=== PATIENT | female | born 1945 | race Caucasian/White ===

== ENCOUNTER 2018-11-04 11:50 | Outpatient (REF) | payer MEDICARE, BC, SELFPAY ==
--- NOTE | 2018-11-04 10:55 | ENDOMET_PTH ---
PATIENT: Keiko Duque LOC: [facility] U#:[id number] AGE/SX: 73/F ROOM: RE11/04/[address]: Shea Schwartz : 1945 BED: DIS: 11/04/2018 SPEC #: [id number] RECD: 11/04/18 12:20 STATUS: LORIN REQ #: [id number] JA: 11/04/18 10:[address]: Shea Schwartz DEPT: Surgical Specimen RECD BY: Batsheva Chicas ENTERED: 11/04/18 12:21 SP TYPE: Endomet OTHR DR: Jovanna Hawkins MD, DC Tissues: 1 - ENDOMETRIUM BX/CURRETTE Procedures: GROSS AND MICRO LEVEL 4 Comments: [id number]
== END 2018-11-04 12:10 ==
LOC: LBN 11:50
PROVIDERS: PCP Family Medicine; Visit Provider Obstetrics & Gynecology Gynecology
DX: N84.0 Polyp of corpus uteri (principal); N95.0 Postmenopausal bleeding
CPT/HCPCS: 88305

== ENCOUNTER 2018-11-06 12:42 | Outpatient (CLI) | payer MEDICARE, BC, SELFPAY ==
--- NOTE | 2018-11-06 12:47 | DI.US_ITS ---
SYMPTOMS/DIAGNOSIS: POSTMENOPAUSAL BLEEDING, N95 PELVIC ULTRASOUND: There are no prior comparison exams. There is a moderate to large quantity of ascites which appears higher density than simple fluid and could represent proteinaceous or hemorrhagic material. The uterus measures 7.5 x 3.4. x 3.6 cm. There is fluid within the endometrium and a small amount of debris within the endometrium. No endometrial mass is seen. There are two small anterior fibroids. There is a 5.3 x 2.5 x 3.4 cm complex right adnexal mass. There is a cystic portion containing septations as well as a 3.2 cm solid irregular component with vascularity. An additional mass measuring 4.7 x 1.9 x 3.2 cm is seen in the midline and slightly toward the left which could arise from the left ovary. IMPRESSION: Right adnexal mass with solid and cystic components suspicious for ovarian carcinoma. There is a moderate to large quantity of complex fluid in the pelvis. An additional cystic mass is seen which may arise from the left ovary. Fluid is noted within the endometrial stripe. There is no definite endometrial mass. CT is recommended for further evaluation.
== END 2018-11-06 13:02 ==
PROVIDERS: PCP Family Medicine; Visit Provider Obstetrics & Gynecology Gynecology
DX: N95.0 Postmenopausal bleeding (principal); D49.59 Neoplasm of unspecified behavior of other genitourinary organ
CPT/HCPCS: 76830; 76856

== ENCOUNTER 2018-11-07 04:16 | Outpatient (CLI) | payer MEDICARE, BC, SELFPAY ==
[2018-11-07 12:58] LABS: Absolute Basophil Count 0.03 k/cumm (0.0-0.2); Absolute Eosinophil Count 0.35 k/cumm (0.0-0.7); Absolute Lymphocyte Count 1.98 k/cumm (1.2-3.4); Absolute Monocyte Count 0.61 k/cumm (0.11-0.7); Absolute Neutrophil Count 2.39 k/cumm (1.2-6.7); Basophils % 0.6; Eosinophils % 6.5; HGB 12.3 g/dL (12.0-15.5); Lymphocytes % 36.9; Mean Corp. HGB Concentration 34.2 g/dL (32.0-36.0); Mean Corpuscular Hemoglobin 31.1 pg (27.0-33.0); Mean Corpuscular Volume 90.9 fL (80-95); Mean Platelet Volume 9.9 fL (8.0-11.0); Monocytes % 11.4; Neutrophils % 44.6; Platelet Count 230 x1000/uL (130-400); RBC 3.96 m/cumm (4.00-5.20); RBC Distribution Width 12.5 % (11.7-14.6); White Blood Cell Count 5.36 k/cumm (4.4-10.8)
[2018-11-07 13:32] LABS: ALT 18 U/L (12-78); AST 19 U/L (15-37); Albumin 3.5 g/dL (3.4-5.0); Alkaline Phosphatase 99 U/L (46-116); Anion Gap 8.9 mmol/L (3-11); BUN 18 mg/dL (7-18); Bilirubin, Total 0.3 mg/dL (0.2-1.0); CO2 25.1 mmol/L (21.0-32.0); Calcium 9.9 mg/dL (8.5-10.1); Chloride 105 mmol/L (98-107); Estimated GFR 54.66 (mL/min/1.73m2); Glucose 93 mg/dL (70-100); Potassium 4.3 mmol/L (3.5-5.1); Sodium 139 mmol/L (136-145); Total Protein 7.8 g/dL (6.4-8.2)
[2018-11-10 12:01] LABS: CA 125 267 U/mL (0-30)
== END 2018-11-07 04:36 ==
PROVIDERS: PCP Family Medicine; Visit Provider Family Medicine
DX: D49.59 Neoplasm of unspecified behavior of other genitourinary organ (principal)
CPT/HCPCS: 36415; 80053; 86304; 85025

== ENCOUNTER 2018-11-12 00:53 | Outpatient (CLI) | payer MEDICARE, BC, SELFPAY ==
[2018-11-12] MEDS: Omnipaque 350 MG/ML 100 ML BTL IJ (10:10)
--- NOTE | 2018-11-12 10:10 | DI.CT_ITS ---
SYMPTOMS/DIAGNOSIS: OVARIAN MASS, N83.9 CT OF THE ABDOMEN AND PELVIS: The study was carried out with an intravenous administration of 100 cc's of Omnipaque 350 and oral ingestion of dilute Omnipaque. There are small regions of dependent atelectasis and scarring involving the lung bases. There is a 2.2 cm rounded mass involving the posterior medial portion of the right hepatic lobe which is superficial in position and projects just above the upper pole of the right kidney. The liver is otherwise unremarkable. The gallbladder is intact. There is no evidence of gallstones or biliary dilatation. The spleen is normal. The kidneys are unremarkable. There is no evidence of bowel obstruction and nothing to suggest an acute appendix. Note is made of a small quantity of fluid in the pericolic gutters and large quantity of ascitic fluid in the pelvis. The bladder appears intact. Small air bubbles are noted adjacent to the wall in the anterior bladder presumably secondary to instrumentation. The uterus is intact save for two small anterior uterine fibroids. There is an ovoid 3 x 5.4 cm mass lying superior to the uterus which has a thickened enhancing wall and a mural area of nodularity. In addition there are two smaller fluid containing masses which are thin walled lying more inferiorly. As noted above there is a large quantity of free fluid in the pelvis. There is no definite evidence of pelvic adenopathy, however, retroperitoneal adenopathy is noted in the mid and lower abdomen. The largest left periaortic lymph node measuring up to 2 cm in diameter. There is no evidence of an aortic aneurysm. Degenerative changes involving the spine are identified. SUMMARY: Pelvic masses are identified as described above. There is a 3.0 x 5.5 cm complex mass with a thickened enhancing wall which likely arises from the left ovary. In addition two more inferiorly located masses measure approximately 2.4 and 3.7 x 2.4 cm and have a thin wall and may arise from the left ovary. There is no definite pelvic adenopathy but there is evidence of retroperitoneal adenopathy as noted above. Also a small right hepatic lobe mass is identified. The findings are highly suspicious for an ovarian carcinoma with metastatic disease.
[2018-11-12] MEDS: Breeza Beverage 473 ML BTL PO ×2 (10:11→10:12)
[2018-11-12] MEDS: Omnipaque 350 MG/ML 50 ML BTL PO (10:11)
[2018-11-12] MEDS: Normal Saline Flush 10 ML SYR IJ (10:12)
== END 2018-11-12 01:13 ==
PROVIDERS: PCP Family Medicine; Visit Provider Family Medicine
DX: N83.9 Noninflammatory disorder of ovary, fallopian tube and broad ligament, unspecified (principal); R59.0 Localized enlarged lymph nodes; R16.0 Hepatomegaly, not elsewhere classified; R19.09 Other intra-abdominal and pelvic swelling, mass and lump; R18.8 Other ascites; D25.9 Leiomyoma of uterus, unspecified; N83.292 Other ovarian cyst, left side
CPT/HCPCS: 74177; J3490; Q9967

== ENCOUNTER 2018-12-01 16:01 | Emergency (ER) | payer MEDICARE, BC, SELFPAY ==
[2018-12-01] VITALS (27 sets, daily range): BP systolic 102–124; BP diastolic 56–74; PULSE 102–122; RESP 14–32; TEMP 36.8; O2SAT 84–99
--- NOTE | 2018-12-01 16:30 | W.ED.GENAD ---
Discharge Plan Disposition Patient Disposition: HOME Condition: Serious Discharge Details Chief Complaint: GI Bleed Clinical Impression: Pneumoperitoneum Primary Care Provider: Jovanna Hawkins ED Provider: Albert Donahue Home Meds and New Rx's Prescriptions: No Action Shingrix Adjuvant Component-PF suspension 1 ml IM ONCE Qty: 0.5 RF: 1 cetirizine 10 MG tablet 10 mg PO DAILY Qty: 90 RF: 4 Tr-Q3-rto-dcmm-nlz-gxul-bor 1 EACH tablet 1 ea PO DAILY RF: 0 cholecalciferol (vitamin D3) 1,000 UNIT capsule 1,000 unit PO DAILY RF: 0 Turmeric Root Extract [Turmeric] 538 MG capsule 538 mg PO DAILY RF: 0 estradiol [Vagifem] 10 mcg tablet 10 mcg VG twice weekly Qty: 24 RF: 12 hydroxychloroquine 200 mg tablet 200 mg PO DAILY RF: 0 Medical Decision Making 73-year-old female presents from home after discharge from [facility] yesterday. She had recently diagnosed uterine mass for which she underwent hysterectomy approximately 10 to 11 days ago at [facility] with bilateral salpingo-oophorectomy, infracolic omentectomy, lymphadenectomy and rectosigmoid resection. She says she had brown stool that transition to dark tarry stools over the last 12 to 24 hours, with associated weakness and malaise. She arrives with a pulse of 122 at rest in bed with a blood pressure 121/74. Her exam notes mild abdominal tenderness, guaiac positive dark tarry stool. 2 peripheral IVs placed, screening labs obtained and patient given small aliquot of fluid, referred for type and screen, CT of the abdomen and pelvis.: She is not anemic with hematocrit of 34 but her white blood cell count is elevated at 34, with significant left shift and thrombocytosis with platelets of 909. Appears dehydrated with an elevated BUN and creatinine over baseline. Her CT images reveal large hydropneumoperitoneum. Extensive inflammatory changes throughout the peritoneal fat with a large amount of ascites. Multiple loops of dilated small bowel. Moderate right pleural effusion. Concern for postoperative anastomotic leak given free air: antibiotics initiated, images uploaded to [facility] and case discussed with Dr Dwyer who accepts the patient in transfer. Lab Data Lab results reviewed: Yes I reviewed the patient's lab results. Laboratory Results - last 24 hr 12/01/18 12/01/18 12/01/18 16:15 16:15 16:15 WBC 34.21 H* RBC 3.84 L Hgb 11.6 L Hct 34.1 L MCV 88.8 MCH 30.2 MCHC 34.0 RDW 14.2 Plt Count 909 H* D MPV 8.9 Immature Gran % See Differential Neutrophils % 79.0 Band Neutrophils % 13.0 Lymphocytes % 2.0 Monocytes % 6.0 Eosinophils % 0.0 Basophils % 0.0 Absolute Neutrophils 31.47 H Absolute Lymphocytes 0.68 L Absolute Monocytes 2.05 H Absolute Eosinophils 0.00 Absolute Basophils 0.00 Differential Comment Manual differential RBC Morphology Normal PT 12.1 H INR 1.2 H Sodium 136 Potassium 3.6 Chloride 100 Carbon Dioxide 23.3 Anion Gap 12.7 H BUN 29 H Creatinine 1.64 H Estimated GFR/1.73 m2 30.88 Glucose 140 H Calcium 9.2 Magnesium 1.7 L Total Bilirubin 0.6 AST 18 ALT 24 Alkaline Phosphatase 351 H Total Protein 7.2 Albumin 1.7 L Patient ABO/Rh 12/01/18 16:15 WBC RBC Hgb Hct MCV MCH MCHC RDW Plt Count MPV Immature Gran % Neutrophils % Band Neutrophils % Lymphocytes % Monocytes % Eosinophils % Basophils % Absolute Neutrophils Absolute Lymphocytes Absolute Monocytes Absolute Eosinophils Absolute Basophils Differential Comment RBC Morphology PT INR Sodium Potassium Chloride Carbon Dioxide Anion Gap BUN Creatinine Estimated GFR/1.73 m2 Glucose Calcium Magnesium Total Bilirubin AST ALT Alkaline Phosphatase Total Protein Albumin Patient ABO/Rh O Positive ECG Data Attestation: I personally reviewed and interpreted this ECG (s) as follows: Interpretation: Sinus tachycardia with a rate of 109, the QRS is narrow, there is no ST segment elevation present HPI General Mode of arrival: ambulatory. Date/Time Provider Initiated Documentation: 12/01/18 16:03. Limitations to Documentation: no limitations. Information obtained by: patient. History of Present Illness 73 year old F presents to the emergency department with the chief complaint of Black tarry stool, postop hysterectomy, described as moderate, and is localized to the abdomen. Patient reports no radiation. and it has been intermittent. No relieving factors improve symptom(s), No exacerbating factors reported . Patient notes weakness; denies fever/chills and syncope. Patient did receive the following treatments prior to arrival, none Related Data Home Medications Medication Instructions Recorded Confirmed [id number]-[id number]-mufx-bor 1 ea PO DAILY 12/16/12 11/04/18 cetirizine 10 mg PO DAILY #90 tab-cap 12/16/12 11/04/18 cholecalciferol (vitamin D3) 1,000 unit PO DAILY 02/09/14 11/04/18 Turmeric Root Extract [Turmeric] 538 mg PO DAILY 05/09/17 11/04/18 estradiol 10 mcg vaginal tablet 10 mcg VG twice weekly #24 tab 05/10/18 11/04/18 adjuvant AS01B (PF)vial 1 of 2 1 ml IM ONCE #0.5 ml 05/27/18 11/03/18 hydroxychloroquine 200 mg tablet 200 mg PO DAILY 05/27/18 11/04/18 Previous Rx's Medication Instructions Recorded estradiol 10 mcg vaginal tablet 10 mcg VG twice weekly #24 tab 05/10/18 adjuvant AS01B (PF)vial 1 of 2 1 ml IM ONCE #0.5 ml 05/27/18 Allergies Allergy/AdvReac Type Severity Reaction Status Date / Time No Known Allergies Allergy Unverified 11/04/18 10:25 General Stated Complaint: GI Bleed LORI: 2 Review of Systems Review of Systems Postop day 10 status post hysterectomy with partial colectomy. Discharged home yesterday. Mild nausea, no emesis, no fever, no chest pain. Feels weakness. 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 Paternal Grandfather No problems noted. Maternal Grandmother No problems noted. Son No problems noted. Daughter No problems noted. Social History Smoking/Tobacco Use Status: Never Alcohol Intake: current Alcohol Intake frequency: 0-2 drinks per day Alcohol type: wine Drug use: Never Substance use type: does not use Caregiver/Support person: No Household members: spouse Housing: house Pets and animals: No Sexually active: Yes (seldom) Do you think of yourself as: straight/heterosexual Current gender identity: female What is your relationship status?: How often do you talk on the phone with friends or family?: three or more times per week How often do you get together with friends or relatives?: twice per week How often do you attend confucianist or yazidi services?: 4 or more times per year Do you belong to any clubs or organized social groups?: yes Panel score (0-1 are the most socially isolated patients): 4 What type of physical activity do you participate in: walking and other Details: Strong Living, shoveling Duration: 30-45 minutes/day Frequency: 3-4 times per week Marleny/Church: Zoroastrianism Special marleny needs: No Do you feel safe at home: Yes Do you feel safe in your relationship?: Yes Female Reproductive History Menstrual Menopause type: natural Exam Narrative Exam Narrative: GEN: awake, alert, oriented 3. Pleasant, well groomed, interactive. HEAD: Normocephalic, atraumatic ENT: Mucous membranes moist, oropharynx unremarkable, External ear exam unremarkable EYES: PERRL, EOMI NECK: Full ROM, no SCOTT, no menigismus CHEST/RESP: Nontender, clear to auscultation bilateral, no wheeze/rhonchi/rales CARDIOVASCULAR: Regular tachycardia, no murmur, rub aditya. 2+ Rad pulse bilateral ABDOMEN: Soft, minimally tender without rebound or guarding. Vertical midline incision well-healed without surrounding erythema or discharge, no mass. +Bowel sounds, diminished. Rectal exam with dark tarry stool that is guaiac positive. EXT: Full ROM, no edema, no rash Neuro: Grossly normal neurologic exam, conversant, interactive. Psych: Speech fluent, thoughts congruent, affect normal Course Vital Signs Temperature 36.8 C 12/01/18 16:14 Pulse 122 H 12/01/18 16:14 Respiratory Rate 25 H 12/01/18 16:14 Blood Pressure 121/74 12/01/18 16:14 Pulse Oximetry 98 12/01/18 16:14 Temperature 36.8 C 12/01/18 16:14 Pulse 122 H 12/01/18 16:14 Respiratory Rate 25 H 12/01/18 16:14 Blood Pressure 121/74 12/01/18 16:14 Blood Pressure Position Supine 12/01/18 16:14 Pulse Oximetry 98 12/01/18 16:14 Oxygen Delivery Method Room Air 12/01/18 16:14 Oxygen Flow Rate 0 12/01/18 16:14
[2018-12-01] MEDS: Lactated Ringers 1,000 ML 125 ML IV (16:40)
[2018-12-01] MEDS: Ondansetron 4 MG/2 ML VIAL IVP (16:40)
[2018-12-01 16:42] LABS: HCT 34.1 % (36.0-46.0); HGB 11.6 g/dL (12.0-15.5); Mean Corpuscular Hemoglobin 30.2 pg (27.0-33.0); Mean Corpuscular Volume 88.8 fL (80-95); Mean Platelet Volume 8.9 fL (8.0-11.0); RBC 3.84 m/cumm (4.00-5.20); RBC Distribution Width 14.2 % (11.7-14.6)
[2018-12-01 16:44] LABS: White Blood Cell Count 34.21 k/cumm (4.4-10.8)
[2018-12-01] MEDS: Pantoprazole 40 MG VIAL 80 MG IVP (16:44)
[2018-12-01 16:45] LABS: Platelet Count 909 x1000/uL (130-400)
[2018-12-01] MEDS: ACETAMINOPHEN 1,000 MG/100 ML BTL 400 MG IVPB (16:45)
[2018-12-01 16:52] LABS: INR 1.2 (0.9-1.1); Prothrombin Time 12.1 sec (9.3-11.0)
[2018-12-01 16:56] LABS: ALT 24 U/L (12-78); AST 18 U/L (15-37); Albumin 1.7 g/dL (3.4-5.0); Alkaline Phosphatase 351 U/L (46-116); Anion Gap 12.7 mmol/L (3-11); BUN 29 mg/dL (7-18); Bilirubin, Total 0.6 mg/dL (0.2-1.0); CO2 23.3 mmol/L (21.0-32.0); CREATININE 1.64 mg/dL (0.55-1.02); Calcium 9.2 mg/dL (8.5-10.1); Chloride 100 mmol/L (98-107); Estimated GFR 30.88 (mL/min/1.73m2); Glucose 140 mg/dL (70-100); Magnesium 1.7 mg/dL (1.8-2.4); Potassium 3.6 mmol/L (3.5-5.1); Sodium 136 mmol/L (136-145); Total Protein 7.2 g/dL (6.4-8.2)
--- NOTE | 2018-12-01 17:00 | DI.CT_ITS ---
SYMPTOM/DIAGNOSIS: S/P HYSTERECTOMY/PARTIAL COLECTOMY, ABDOMINAL AND PELVIC CT 12/01 CT examination of the abdomen and pelvis was performed without contrast administration. The patient reportedly had hysterectomy and partial colectomy approximately 2 weeks ago. There is marked atelectasis and/or consolidation of the right lung base with an associated right pleural effusion. Left lung grossly clear. There is marked hydro pneumoperitoneum, the findings are inconsistent with the degree of hydro pneumoperitoneum expected from prior surgery 2 weeks ago The findings are highly suggestive of ruptured viscus or leaking anastomosis. There is sigmoid anastomosis with vascular clips also present in the retroperitoneum. Liver and spleen grossly unremarkable. Pancreas grossly unremarkable. Gallbladder and bile ducts unremarkable. Adrenals and kidneys unremarkable. No urinary tract obstruction or calcification. Abdominal aorta is of normal diameter. No significant abdominal wall hernia seen. CONCLUSION: Large hydro pneumoperitoneum out of scale for expected quantity of gas and fluid 2 weeks post surgery. The findings are highly suggestive of ruptured viscus or leaking anastomosis. No definite site of leakage identified.
[2018-12-01 17:11] LABS: Absolute Lymphocyte Count 0.68 k/cumm (1.2-3.4); Absolute Monocyte Count 2.05 k/cumm (0.11-0.7); Absolute Neutrophil Count 31.47 k/cumm (1.2-6.7); RBC Morphology Normal
[2018-12-01 17:13] LABS: Diff Comment Manual Differential
--- NOTE | 2018-12-01 17:51 | DI.VRAD_ITS ---
EXAM: CT Abdomen and Pelvis Without Contrast EXAM DATE/TIME: 12/01/2018 5:02 PM CLINICAL HISTORY: 73 years old, female; Other: Black stools; Prior surgery; Surgery date: <1 month; Surgery type: S/P hysterectomy/partial colectomy; Additional info: Wo contrast due to PT labs TECHNIQUE: Imaging protocol: Axial computed tomography images of the abdomen and pelvis without contrast. Coronal and sagittal reformatted images were created and reviewed. COMPARISON: CT ABDOMEN PELVIS W 11/12/2018 9:59 AM FINDINGS: Lungs: Consolidation in the lower lobes may represent atelectasis or pneumonia. Pleural space: Moderate right pleural effusion. Liver: Normal. No mass. Gallbladder and bile ducts: Normal. No calcified stones. No ductal dilation. Pancreas: Normal. No ductal dilation. Spleen: Normal. No splenomegaly. Adrenals: Normal. No mass. Kidneys and ureters: Normal. No hydronephrosis. Stomach and bowel: Multiple loops of dilated small bowel may represent obstruction or ileus. Bowel wall thickening in the colon may reflect colitis or edematous bowel from ascites and inflammation. Anastomotic sutures in the rectosigmoid Appendix: No evidence of appendicitis. Intraperitoneal space:Large hydropneumoperitoneum. Multiple smaller collections of air in the upper abdomen. More air than expected for surgery over 2 weeks ago. Extensive inflammatory changes throughout the visualized peritoneal fat. Large amount of ascites. Loculated fluid collections cannot be ruled out. Oral contrast would be helpful to differentiated bowel from abscess. Vasculature: Normal. No abdominal aortic aneurysm. Lymph nodes: Normal. No enlarged lymph nodes. Bladder: Unremarkable as visualized. Reproductive: Unremarkable as visualized. Bones/joints: No acute fracture. No dislocation. Soft tissues: Edema in the subcutaneous fat THIS REPORT CONTAINS FINDINGS THAT MAY BE CRITICAL TO PATIENT CARE. The findings were verbally communicated via telephone conference with Dr. Salazar at 5:44 PM EDT on 12/01/2018. The findings were acknowledged and understood. IMPRESSION: 1. Large hydropneumoperitoneum. Multiple smaller collections of air in the upper abdomen. More air than expected for surgery over 2 weeks ago. 2. Moderate right pleural effusion. 3. Consolidation in the lower lobes may represent atelectasis or pneumonia. 4. Multiple loops of dilated small bowel may represent obstruction or ileus. 5. Extensive inflammatory changes throughout the visualized peritoneal fat. 6. Large amount of ascites. Loculated fluid collections cannot be ruled out. Oral contrast would be helpful to differentiated bowel from abscess. Dictated and Authenticated by: Geoff Herrera MD. Ordering:STEFANI Price MD
[2018-12-01] MEDS: PIPERACILLIN/TAZO 3.375 GM in Normal Saline 50 ML IVPB (18:05)
[2018-12-01] MEDS: Normal Saline 1,000 ML 150 ML IV (18:12)
[2018-12-01] MEDS: VANCOMYCIN 1,250 MG in Normal Saline 250 ML 166.6666 MG IVPB (18:14)
--- NOTE | 2018-12-01 20:42 | W.PALLCONSUL ---
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 She recently underwent surgery and extended recovery at [facility]. She came home last evening. She was feeling weak and the plan was for me to do a home visit today. In the interim home health had visited Laya. They found her pulse to be rapid at 126, and she had black tarry stools. She was extremely weak. I recommended she go immediately to the ER. She was seen by Dr. Donahue who is in the early part of the work-up. Initially Laya stated she would not stay in the hospital overnight. He requested a palliative care consult to help her with goals of care. Laya is laying in bed she looks weak and tired. Her is by her side. Her stance on not staying at the hospital has softened. She said she will do what she needs to do to improve. Consults Consult date: 12/01/18 Requesting physician: Albert Donahue Assessment and Plan (1) Elevated WBC count: Current visit: No Status: Acute (2) Leakage of surgical anastomosis of digestive tract: Current visit: No Status: Acute Niki is very sick. She understands the gravity of her condition. She and her both agree that she should return to [facility]. Dr. Donahue is making these arrangements at this time. Please note we have still not discussed by David GRAMAJOT form and decision. I have spent more than 50% of time in counseling with this patient. This document was created by [employer] and may contain grammatical and translation errors. Review of Systems Review of Systems Zoraida feels very weak, tired, washed out, her belly hurts, she cannot control her bowels. Constitutional Reports fatigue, Reports lethargy, Reports weakness and Reports weight loss Cardiovascular Reports rapid heart rate, Reports pedal edema, Reports edema, Reports lightheadedness, Reports dyspnea, Reports dyspnea on exertion and Reports orthopnea Respiratory Reports chest congestion, Reports dyspnea and Reports dyspnea on exertion Gastrointestinal Reports abdominal pain, Reports change in bowel habits, Reports dyspepsia, Reports diarrhea and Reports loose stools Genitourinary Reports pelvic pain and Reports urinary incontinence Neurologic Reports weakness Psychiatric Reports abnormal sleep pattern, Reports anxiety and Reports other (Trying to stay on the positive side, but is scared) Endocrine Reports fatigue FOR[facility], [facility] Medical History Anisocoria (Chronic) Bladder prolapse, female, acquired (Chronic 10/31/15) Cataract (Chronic) 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 Paternal Grandfather No problems noted. Maternal Grandmother No problems noted. Son No problems noted. Daughter No problems noted. Social History Smoking/Tobacco Use Status: Never Alcohol Intake: current Alcohol Intake frequency: 0-2 drinks per day Alcohol type: wine Drug use: Never Substance use type: does not use Caregiver/Support person: No Household members: spouse Housing: house Pets and animals: No Sexually active: Yes (seldom) Do you think of yourself as: straight/heterosexual Current gender identity: female What is your relationship status?: How often do you talk on the phone with friends or family?: three or more times per week How often do you get together with friends or relatives?: twice per week How often do you attend worship or mormonism services?: 4 or more times per year Do you belong to any clubs or organized social groups?: yes Panel score (0-1 are the most socially isolated patients): 4 What type of physical activity do you participate in: walking and other Details: Strong Living, shoveling Duration: 30-45 minutes/day Frequency: 3-4 times per week Marleny/Pentecostal: Taoist Special marleny needs: No Do you feel safe at home: Yes Do you feel safe in your relationship?: Yes Female Reproductive History Menstrual Menopause type: natural Exam Const General: anxious, frail appearing and ill appearing Nutritional Appearance: average body habitus Orientation: oriented x3 Eyes General: appearance normal, both eyes and all related structures Neck Lymphatic: no lymphadenopathy noted Resp Effort & Inspection: able to speak in complete sentences and abnormal respiratory pattern Auscultation: diminished lung sounds Cardio Rate: tachycardic Heart Sounds: murmur GI Inspection: distended and incision Palpation: no hepatosplenomegaly Auscultation: absent bowel sounds Psych Appearance: other Speech and Movement: slowed movement Mood: anxious mood Affect: normal affect Other: Patient Name: ZORAIDA GRIMES #: [id number]: ER Ordering Provider: Albert Donahue M.D. : [facility] ER Primary Care Provider: Jovanna Hawkins M.D., DCDate of Exam: 12/01/18Sex: F : 1945ge: 73 Exam(s) a CT:CT abdomen & pelvis wo SYMPTOM/DIAGNOSIS: S/P HYSTERECTOMY/PARTIAL COLECTOMY, ABDOMINAL AND PELVIC CT 12/01 CT examination of the abdomen and pelvis was performed without contrast administration. The patient reportedly had hysterectomy and partial colectomy approximately 2 weeks ago. There is marked atelectasis and/or consolidation of the right lung base with an associated right pleural effusion. Left lung grossly clear. There is marked hydro pneumoperitoneum, the findings are inconsistent with the degree of hydro pneumoperitoneum expected from prior surgery 2 weeks ago The findings are highly suggestive of ruptured viscus or leaking anastomosis. There is sigmoid anastomosis with vascular clips also present in the retroperitoneum. Liver and spleen grossly unremarkable. Pancreas grossly unremarkable. Gallbladder and bile ducts unremarkable. Adrenals and kidneys unremarkable. No urinary tract obstruction or calcification. Abdominal aorta is of normal diameter. No significant abdominal wall hernia seen. CONCLUSION: Large hydro pneumoperitoneum out of scale for expected quantity of gas and fluid 2 weeks post surgery. The findings are highly suggestive of ruptured viscus or leaking anastomosis. No definite site of leakage identified. Results Last Vital Signs Temp 98.2 F 12/01/18 19:47 Pulse 103 H 12/01/18 19:47 Resp 20 12/01/18 19:47 BP 124/68 12/01/18 19:47 Pulse Ox 97 12/01/18 19:47 Labs : 12/01/18 16:15 12/01/18 16:15 Laboratory Results - last 24 hr 12/01/18 12/01/18 12/01/18 16:15 16:15 16:15 WBC 34.21 H* RBC 3.84 L Hgb 11.6 L Hct 34.1 L MCV 88.8 MCH 30.2 MCHC 34.0 RDW 14.2 Plt Count 909 H* D MPV 8.9 Immature Gran % See Differential Neutrophils % 79.0 Band Neutrophils % 13.0 Lymphocytes % 2.0 Monocytes % 6.0 Eosinophils % 0.0 Basophils % 0.0 Absolute Neutrophils 31.47 H Absolute Lymphocytes 0.68 L Absolute Monocytes 2.05 H Absolute Eosinophils 0.00 Absolute Basophils 0.00 Differential Comment Manual differential RBC Morphology Normal PT 12.1 H INR 1.2 H Sodium 136 Potassium 3.6 Chloride 100 Carbon Dioxide 23.3 Anion Gap 12.7 H BUN 29 H Creatinine 1.64 H Estimated GFR/1.73 m2 30.88 Glucose 140 H Calcium 9.2 Magnesium 1.7 L Total Bilirubin 0.6 AST 18 ALT 24 Alkaline Phosphatase 351 H Total Protein 7.2 Albumin 1.7 L Patient ABO/Rh Antibody Screen 12/01/18 16:15 WBC RBC Hgb Hct MCV MCH MCHC RDW Plt Count MPV Immature Gran % Neutrophils % Band Neutrophils % Lymphocytes % Monocytes % Eosinophils % Basophils % Absolute Neutrophils Absolute Lymphocytes Absolute Monocytes Absolute Eosinophils Absolute Basophils Differential Comment RBC Morphology PT INR Sodium Potassium Chloride Carbon Dioxide Anion Gap BUN Creatinine Estimated GFR/1.73 m2 Glucose Calcium Magnesium Total Bilirubin AST ALT Alkaline Phosphatase Total Protein Albumin Patient ABO/Rh O Positive Antibody Screen Negative
== END 2018-12-01 19:15 | disposition home or self-care (01) ==
PROVIDERS: Emergency Provider Emergency Medicine; PCP Family Medicine
DX: K66.8 Other specified disorders of peritoneum (principal); R19.5 Other fecal abnormalities; R53.81 Other malaise; E86.0 Dehydration; R18.8 Other ascites; Y83.6 Removal of other organ (partial) (total) as the cause of abnormal reaction of the patient, or of later complication, without mention of misadventure at the time of the procedure
CPT/HCPCS: 36415; 80053; 86850; 86900; 86901; 93005; 96361; 96365; 96375; 99254; 99285; 74176; 83735; 85025; 85610; 93010; J0131; J2405; J2543

== ENCOUNTER 2018-12-15 12:21 | Outpatient (REF) | payer MEDICARE, BC, SELFPAY ==
[2018-12-15 13:42] LABS: Abs Immature Grans 0.08 k/cumm (0.0-0.09); Absolute Basophil Count 0.02 k/cumm (0.0-0.2); Absolute Lymphocyte Count 2.07 k/cumm (1.2-3.4); Absolute Monocyte Count 1.11 k/cumm (0.11-0.7); Absolute Neutrophil Count 8.84 k/cumm (1.2-6.7); Basophils % 0.2; Eosinophils % 0.8; HCT 23.2 % (36.0-46.0); HGB 7.2 g/dL (12.0-15.5); Immature Grans % 0.7; Lymphocytes % 16.9; Mean Corpuscular Hemoglobin 29.1 pg (27.0-33.0); Mean Corpuscular Volume 93.9 fL (80-95); Mean Platelet Volume 8.8 fL (8.0-11.0); Monocytes % 9.1; Neutrophils % 72.3; RBC 2.47 m/cumm (4.00-5.20); RBC Distribution Width 14.3 % (11.7-14.6); White Blood Cell Count 12.22 k/cumm (4.4-10.8)
[2018-12-15 13:47] LABS: Anion Gap 8.7 mmol/L (3-11); BUN 15 mg/dL (7-18); CO2 27.3 mmol/L (21.0-32.0); Calcium 7.8 mg/dL (8.5-10.1); Chloride 103 mmol/L (98-107); Glucose 92 mg/dL (70-100); Magnesium 1.6 mg/dL (1.8-2.4); Potassium 3.4 mmol/L (3.5-5.1); Sodium 139 mmol/L (136-145)
[2018-12-15 13:51] LABS: Platelet Count 782 x1000/uL (130-400)
[2018-12-15 14:03] LABS: Diff Comment Diff Reviewed; Hypochromasia 1+
== END 2018-12-15 12:41 ==
LOC: LBN 12:21
PROVIDERS: PCP Family Medicine; Visit Provider Obstetrics & Gynecology Gynecologic Oncology
DX: C57.01 Malignant neoplasm of right fallopian tube (principal)
CPT/HCPCS: 80048; 83735; 85025

== ENCOUNTER 2018-12-19 11:49 | Outpatient (REF) | payer MEDICARE, BC, SELFPAY ==
[2018-12-19 13:17] LABS: Abs Immature Grans 0.08 k/cumm (0.0-0.09); Absolute Basophil Count 0.03 k/cumm (0.0-0.2); Absolute Eosinophil Count 0.07 k/cumm (0.0-0.7); Absolute Lymphocyte Count 3.03 k/cumm (1.2-3.4); Absolute Monocyte Count 1.13 k/cumm (0.11-0.7); Basophils % 0.2; Eosinophils % 0.5; HCT 28.1 % (36.0-46.0); HGB 8.8 g/dL (12.0-15.5); Immature Grans % 0.6; Lymphocytes % 22.2; Mean Corp. HGB Concentration 31.3 g/dL (32.0-36.0); Mean Corpuscular Hemoglobin 29.1 pg (27.0-33.0); Mean Platelet Volume 8.7 fL (8.0-11.0); Monocytes % 8.3; Neutrophils % 68.2; RBC 3.02 m/cumm (4.00-5.20); RBC Distribution Width 14.3 % (11.7-14.6); White Blood Cell Count 13.67 k/cumm (4.4-10.8)
[2018-12-19 13:21] LABS: Absolute Neutrophil Count 9.32 k/cumm (1.2-6.7); Anion Gap 11.4 mmol/L (3-11); BUN 14 mg/dL (7-18); CO2 26.6 mmol/L (21.0-32.0); CREATININE 0.91 mg/dL (0.55-1.02); Calcium 8.4 mg/dL (8.5-10.1); Chloride 99 mmol/L (98-107); Glucose 102 mg/dL (70-100); Magnesium 1.5 mg/dL (1.8-2.4); Potassium 3.6 mmol/L (3.5-5.1); Sodium 137 mmol/L (136-145)
[2018-12-19 13:47] LABS: Platelet Count 1028 x1000/uL (130-400)
[2018-12-19 14:06] LABS: RBC Morphology Normal
[2018-12-19 14:07] LABS: Diff Comment PLT Morph Reviewed
== END 2018-12-19 12:09 ==
LOC: LBN 11:49
PROVIDERS: PCP Family Medicine; Visit Provider Obstetrics & Gynecology Gynecologic Oncology
DX: C18.7 Malignant neoplasm of sigmoid colon (principal)
CPT/HCPCS: 80048; 83735; 85025

== ENCOUNTER 2018-12-22 14:52 | Outpatient (REF) | payer MEDICARE, BC, SELFPAY ==
[2018-12-22 15:06] LABS: Abs Immature Grans 0.06 k/cumm (0.0-0.09); Absolute Basophil Count 0.02 k/cumm (0.0-0.2); Absolute Lymphocyte Count 2.36 k/cumm (1.2-3.4); Absolute Monocyte Count 1.35 k/cumm (0.11-0.7); Absolute Neutrophil Count 8.42 k/cumm (1.2-6.7); Basophils % 0.2; Eosinophils % 0.2; HCT 26.3 % (36.0-46.0); HGB 8.1 g/dL (12.0-15.5); Immature Grans % 0.5; Lymphocytes % 19.3; Mean Corp. HGB Concentration 30.8 g/dL (32.0-36.0); Mean Corpuscular Hemoglobin 28.6 pg (27.0-33.0); Mean Corpuscular Volume 92.9 fL (80-95); Mean Platelet Volume 8.5 fL (8.0-11.0); Neutrophils % 68.8; RBC 2.83 m/cumm (4.00-5.20); RBC Distribution Width 14.3 % (11.7-14.6); White Blood Cell Count 12.24 k/cumm (4.4-10.8)
[2018-12-22 15:18] LABS: ALT 15 U/L (14-59); AST 18 U/L (15-37); Albumin 1.5 g/dL (3.4-5.0); Alkaline Phosphatase 353 U/L (46-116); Anion Gap 7.4 mmol/L (3-11); BUN 15 mg/dL (7-18); Bilirubin, Total 0.2 mg/dL (0.2-1.0); CO2 28.6 mmol/L (21.0-32.0); Calcium 8.5 mg/dL (8.5-10.1); Chloride 99 mmol/L (98-107); Glucose 97 mg/dL (70-100); Potassium 4.1 mmol/L (3.5-5.1); Sodium 135 mmol/L (136-145); Total Protein 6.5 g/dL (6.4-8.2)
[2018-12-22 15:23] LABS: Absolute Eosinophil Count 0.02 k/cumm (0.0-0.7)
[2018-12-22 15:25] LABS: Iron 10 ug/dL (50-175)
[2018-12-22 15:34] LABS: Platelet Count 777 x1000/uL (130-400)
[2018-12-22 15:35] LABS: Diff Comment PLT Morph Reviewed
[2018-12-22 15:58] LABS: Bilirubin Small (Negative); Blood Small (Negative); Clarity Clear (Clear); Glucose Negative (Negative); Ketones 15 mg/dL (Negative); Leukocyte Esterase Trace (Negative); Nitrite Negative (Negative); Specific Gravity >= 1.030 (1.005-1.025); Urobilinogen 0.2 EU/dL (Up TO 0.2); pH 5.5 (5-8)
[2018-12-22 16:11] LABS: Bacteria Many HPF (Negative); Casts Negative LPF (Negative); Crystals Many Calcium Oxalate HPF (Negative); Epithelial Cells Many HPF (Negative); Mucus Negative (Negative); RBC Negative (0-2); WBC >50 HPF (0-5)
[2018-12-22 16:12] LABS: C & S Indicated? No/Sq. Contamination
== END 2018-12-22 15:12 ==
LOC: LBN 14:52
PROVIDERS: PCP Family Medicine; Visit Provider Family Medicine
DX: D64.9 Anemia, unspecified (principal); D72.829 Elevated white blood cell count, unspecified; R11.2 Nausea with vomiting, unspecified; R80.9 Proteinuria, unspecified
CPT/HCPCS: 80053; 81003; 81015; 83540; 85025; 87086

== ENCOUNTER 2018-12-26 12:01 | Outpatient (REF) | payer MEDICARE, BC, SELFPAY ==
[2018-12-26 13:16] LABS: Abs Immature Grans 0.23 k/cumm (0.0-0.09); HCT 26.8 % (36.0-46.0); HGB 8.2 g/dL (12.0-15.5); Mean Corp. HGB Concentration 30.6 g/dL (32.0-36.0); Mean Corpuscular Volume 91.5 fL (80-95); Mean Platelet Volume 8.5 fL (8.0-11.0); RBC 2.93 m/cumm (4.00-5.20); RBC Distribution Width 14.4 % (11.7-14.6); White Blood Cell Count 17.29 k/cumm (4.4-10.8)
[2018-12-26 13:32] LABS: ALT 12 U/L (14-59); AST 17 U/L (15-37); Albumin 1.3 g/dL (3.4-5.0); Alkaline Phosphatase 343 U/L (46-116); BUN 24 mg/dL (7-18); Bilirubin, Total 0.2 mg/dL (0.2-1.0); CREATININE 0.85 mg/dL (0.55-1.02); Calcium 8.2 mg/dL (8.5-10.1); Chloride 100 mmol/L (98-107); Glucose 107 mg/dL (70-100); Magnesium 1.5 mg/dL (1.8-2.4); Potassium 4.2 mmol/L (3.5-5.1); Sodium 136 mmol/L (136-145)
[2018-12-26 13:33] LABS: Absolute Neutrophil Count 12.62 k/cumm (1.2-6.7); Atypical Lymphocytes % 2; Platelet Count 695 x1000/uL (130-400)
[2018-12-26 13:34] LABS: Absolute Lymphocyte Count 3.11 k/cumm (1.2-3.4); Absolute Monocyte Count 1.56 k/cumm (0.11-0.7); Diff Comment Manual Differential; Hypochromasia 1+; Nucleated RBC 1 /100WBC; Polychromasia Present
[2018-12-26 13:38] LABS: Ferritin 617 ng/mL (8-388)
[2018-12-26 13:59] LABS: Hemoglobin A1C 5.8 % (4.5-6.2)
[2018-12-29 12:16] LABS: CA 125 129 U/mL (0-30)
== END 2018-12-26 12:21 ==
LOC: LBN 12:01
PROVIDERS: PCP Family Medicine; Visit Provider Obstetrics & Gynecology Gynecologic Oncology
DX: C56.9 Malignant neoplasm of unspecified ovary (principal); R73.09 Other abnormal glucose; E61.1 Iron deficiency; M25.569 Pain in unspecified knee
CPT/HCPCS: 80053; 86304; 82728; 83036; 83735; 85025

== ENCOUNTER 2018-12-29 11:09 | Outpatient (REF) | payer MEDICARE, BC, SELFPAY ==
[2018-12-29 13:12] LABS: HCT 25.7 % (36.0-46.0); HGB 7.8 g/dL (12.0-15.5); Mean Corp. HGB Concentration 30.4 g/dL (32.0-36.0); Mean Corpuscular Hemoglobin 27.8 pg (27.0-33.0); Mean Corpuscular Volume 91.5 fL (80-95); Mean Platelet Volume 8.3 fL (8.0-11.0); Platelet Count 515 x1000/uL (130-400); RBC 2.81 m/cumm (4.00-5.20); RBC Distribution Width 14.8 % (11.7-14.6); White Blood Cell Count 14.86 k/cumm (4.4-10.8)
[2018-12-29 13:39] LABS: ALT 13 U/L (14-59); AST 23 U/L (15-37); Albumin 1.3 g/dL (3.4-5.0); Alkaline Phosphatase 360 U/L (46-116); Anion Gap 9.5 mmol/L (3-11); BUN 22 mg/dL (7-18); Bilirubin, Total 0.2 mg/dL (0.2-1.0); CO2 27.5 mmol/L (21.0-32.0); CREATININE 0.82 mg/dL (0.55-1.02); Calcium 8.1 mg/dL (8.5-10.1); Chloride 100 mmol/L (98-107); Glucose 87 mg/dL (70-100); Potassium 3.9 mmol/L (3.5-5.1); Sodium 137 mmol/L (136-145); Total Protein 5.7 g/dL (6.4-8.2)
[2018-12-29 14:12] LABS: Ferritin 547 ng/mL (8-388)
[2018-12-29 15:30] LABS: Hemoglobin A1C 5.9 % (4.5-6.2)
== END 2018-12-29 11:29 ==
LOC: LBN 11:09
PROVIDERS: PCP Family Medicine; Visit Provider Family Medicine
DX: D72.829 Elevated white blood cell count, unspecified (principal); R73.09 Other abnormal glucose; E61.1 Iron deficiency; C57.00 Malignant neoplasm of unspecified fallopian tube
CPT/HCPCS: 80053; 85027; 82728; 83036

== ENCOUNTER 2019-01-08 14:45 | Outpatient (REF) | payer MEDICARE, BC, SELFPAY ==
[2019-01-08 13:49] LABS: HGB 7.9 g/dL (12.0-15.5); Mean Corp. HGB Concentration 30.4 g/dL (32.0-36.0); Mean Corpuscular Hemoglobin 27.9 pg (27.0-33.0); Mean Corpuscular Volume 91.9 fL (80-95); Mean Platelet Volume 8.3 fL (8.0-11.0); Platelet Count 530 x1000/uL (130-400); RBC 2.83 m/cumm (4.00-5.20); White Blood Cell Count 13.26 k/cumm (4.4-10.8)
[2019-01-08 14:35] LABS: ESR 105 mm/hr (0-30)
== END 2019-01-08 15:05 ==
LOC: LBN 14:45
PROVIDERS: PCP Family Medicine; Visit Provider Family Medicine
DX: K65.1 Peritoneal abscess (principal); C57.01 Malignant neoplasm of right fallopian tube; C18.7 Malignant neoplasm of sigmoid colon; C76.2 Malignant neoplasm of abdomen; K91.89 Other postprocedural complications and disorders of digestive system
CPT/HCPCS: 80053; 85027; 85652; 85025

== ENCOUNTER 2019-01-09 02:12 | Outpatient (RCR) | payer MEDICARE, BC, SELFPAY ==
[2018-12-26] MEDS: Heparin 500 UNITS/5 ML SYRINGE IV (13:36)
[2018-12-26] MEDS: SODIUM FER. GLUC./SUC. 125 MG in Normal Saline 100 ML 110 MG IVPB (13:36)
[2018-12-26] MEDS: Normal Saline Flush 10 ML SYR IVP (13:36)
[2019-01-02] MEDS: SODIUM FER. GLUC./SUC. 125 MG in Normal Saline 100 ML 110 MG IVPB (13:28)
[2019-01-02] MEDS: Normal Saline Flush 10 ML SYR IVP (13:32)
[2019-01-02] MEDS: Heparin 500 UNITS/5 ML SYRINGE IV (13:32)
[2019-01-09] MEDS: Normal Saline Flush 10 ML SYR IVP (13:07)
[2019-01-09] MEDS: SODIUM FER. GLUC./SUC. 125 MG in Normal Saline 100 ML 110 MG IVPB (13:07)
[2019-01-09] MEDS: Heparin 500 UNITS/5 ML SYRINGE IV (13:08)
== END 2019-01-12 23:59 | disposition home or self-care (01) ==
LOC: INF 02:12
PROVIDERS: PCP Family Medicine; Visit Provider Family Medicine
DX: C57.00 Malignant neoplasm of unspecified fallopian tube (principal); E61.1 Iron deficiency; Z45.2 Encounter for adjustment and management of vascular access device
CPT/HCPCS: 36591; 96365; 96523; J3490

== ENCOUNTER 2019-01-09 11:12 | Outpatient (REF) | payer MEDICARE, BC, SELFPAY ==
[2019-01-09 13:18] LABS: ALT 14 U/L (14-59); AST 19 U/L (15-37); Alkaline Phosphatase 262 U/L (46-116); Anion Gap 7.2 mmol/L (3-11); BUN 14 mg/dL (7-18); Bilirubin, Total 0.3 mg/dL (0.2-1.0); CO2 28.8 mmol/L (21.0-32.0); CREATININE 0.66 mg/dL (0.55-1.02); Calcium 8.6 mg/dL (8.5-10.1); Chloride 100 mmol/L (98-107); Glucose 91 mg/dL (70-100); Potassium 3.8 mmol/L (3.5-5.1); Sodium 136 mmol/L (136-145); Total Protein 6.8 g/dL (6.4-8.2)
== END 2019-01-09 11:32 ==
LOC: LBN 11:12
PROVIDERS: PCP Family Medicine; Visit Provider Family Medicine
DX: C76.2 Malignant neoplasm of abdomen (principal)
CPT/HCPCS: 80053

== ENCOUNTER 2019-01-14 17:36 | Outpatient (REF) | payer MEDICARE, BC, SELFPAY ==
[2019-01-14 17:24] LABS: ALT 15 U/L (14-59); AST 17 U/L (15-37); Abs Immature Grans 0.02 k/cumm (0.0-0.09); Albumin 2.1 g/dL (3.4-5.0); Alkaline Phosphatase 263 U/L (46-116); Anion Gap 6.1 mmol/L (3-11); BUN 18 mg/dL (7-18); Bilirubin, Total 0.2 mg/dL (0.2-1.0); CO2 30.9 mmol/L (21.0-32.0); CREATININE 0.72 mg/dL (0.55-1.02); Calcium 8.6 mg/dL (8.5-10.1); Chloride 100 mmol/L (98-107); Glucose 93 mg/dL (70-100); HCT 27.2 % (36.0-46.0); HGB 8.3 g/dL (12.0-15.5); Mean Corp. HGB Concentration 30.5 g/dL (32.0-36.0); Mean Corpuscular Hemoglobin 28.5 pg (27.0-33.0); Mean Corpuscular Volume 93.5 fL (80-95); Mean Platelet Volume 8.4 fL (8.0-11.0); Platelet Count 566 x1000/uL (130-400); Potassium 4.2 mmol/L (3.5-5.1); RBC 2.91 m/cumm (4.00-5.20); RBC Distribution Width 18.1 % (11.7-14.6); Sodium 137 mmol/L (136-145); Total Protein 6.8 g/dL (6.4-8.2); White Blood Cell Count 9.74 k/cumm (4.4-10.8)
[2019-01-14 20:16] LABS: Absolute Eosinophil Count 0.68 k/cumm (0.0-0.7); Absolute Lymphocyte Count 4.29 k/cumm (1.2-3.4); Absolute Monocyte Count 0.78 k/cumm (0.11-0.7); Absolute Neutrophil Count 3.99 k/cumm (1.2-6.7); Anisocytosis 1+; Atypical Lymphocytes % 0; Diff Comment Manual Differential; Macrocytosis 1+; Polychromasia Present
== END 2019-01-14 17:56 ==
LOC: LBN 17:36
PROVIDERS: PCP Family Medicine; Visit Provider Obstetrics & Gynecology Gynecologic Oncology
DX: C57.01 Malignant neoplasm of right fallopian tube (principal); C18.1 Malignant neoplasm of appendix; C76.2 Malignant neoplasm of abdomen
CPT/HCPCS: 80053; 85025

== ENCOUNTER 2019-01-23 11:16 | Outpatient (CLI) | payer MEDICARE, BC, SELFPAY ==
--- NOTE | 2019-01-23 15:05 | DI.CT_ITS ---
EXAM: CT CHEST PE CTA CLINICAL HISTORY: SOB, TACHYCARDIA, R06.02, R00.0. TECHNIQUE: CT examination of the chest was performed utilizing CTA protocol with intravenous infusio n of 63 cc of Omnipaque 350. COMPARISON: CT ABDOMEN PELVIS W from 11/12/2018 CT ABDOMEN PELVIS WO from 12/01/2018 FINDINGS: There is no evidence of pulmonary embolic disease. No thoracic aortic aneurysm. No abnormality of t he superior-most portion of visualized abdominal aorta. There is a 4 cm in diameter apparent mass of the posterior medial aspect of the right hepatic lobe, t his is increased markedly in size in comparison with examination of 11/12/2018, metastasis or abscess suspected. Left upper quadrant drainage tube noted with a small fluid collection persisting adjacen t to the spleen. Moderate left pleural effusion, small right pleural effusion. No gross pulmonary c onsolidation or pulmonary edema. No gross mediastinal or hilar adenopathy. IMPRESSION: 1. Marked apparent interval growth of right hepatic lobe lesion, consider metastasis versus abscess 2. No evidence of pulmonary embolic disease.
[2019-01-23] MEDS: Omnipaque 350 MG/ML 100 ML BTL IJ (15:49)
--- NOTE | 2019-01-23 16:14 | DI.VRAD_ITS ---
PROCEDURE INFORMATION: Exam: CT Angiography Chest With Contrast Exam date and time: 01/23/2019 3:48 PM Clinical history: 74 years old, female; Shortness of breath and other: Tachycardia TECHNIQUE: Imaging protocol: Computed tomographic angiography of the chest with intravenous contrast. 3D rendering: MIP reconstructed images were created and reviewed. Radiation optimization: All CT scans at this facility use at least one of these dose optimization techniques: automated exposure control; mA and/or kV adjustment per patient size (includes targeted exams where dose is matched to clinical indication); or iterative reconstruction. Contrast material: OMNIPAQUE 350; Contrast volume: 63 ml; Contrast route: IV; COMPARISON: No relevant prior studies available. FINDINGS: Tubes, catheters and devices: Small caliber tube terminates adjacent to the spleen A collection. Pulmonary arteries: Normal. No pulmonary emboli. Aorta: Unremarkable. No aortic aneurysm. No aortic dissection. Superior vena cava: MediPort terminates in the superior vena cava Lungs: Mild Consolidation in both lower lobes and and right middle lobe may represent minimal atelectasis or pneumonia.. Pleural space: Moderate left pleural effusion. Minimal right pleural effusion Heart: Unremarkable. No cardiomegaly. No pericardial effusion. Diaphragm: Elevated right hemidiaphragm Lymph nodes: Unremarkable. No enlarged lymph nodes. Bones/joints: Unremarkable. No acute fracture. Soft tissues: Unremarkable. IMPRESSION: 1. Small caliber tube terminates adjacent to the spleen in a fluid collection 2. Mild Consolidation in both lower lobes and and right middle lobe may represent minimal atelectasis or pneumonia.. Dictated and Authenticated by: Geoff Herrera MD. Ordering:DAYAMI Nugent MD
== END 2019-01-23 11:36 ==
PROVIDERS: PCP Family Medicine; Visit Provider Family Medicine
DX: R06.02 Shortness of breath (principal); R00.0 Tachycardia, unspecified; K76.89 Other specified diseases of liver; J90 Pleural effusion, not elsewhere classified
CPT/HCPCS: 71275; J3490

== ENCOUNTER 2019-01-28 02:21 | Outpatient (CLI) | payer MEDICARE, BC, SELFPAY | END 2019-01-28 02:41 | PROVIDERS: PCP Family Medicine; Visit Provider Family Medicine | DX: R00.0 Tachycardia, unspecified (principal); I49.1 Atrial premature depolarization; I49.3 Ventricular premature depolarization | CPT/HCPCS: 93225 ==

== ENCOUNTER 2019-01-30 15:46 | Outpatient (CLI) | payer MEDICARE, BC, SELFPAY ==
--- NOTE | 2019-02-02 08:23 | W.HOLTRPT ---
Holter Monitor Report Holter Monitor Note: This is a 48-hour Holter monitor worn for indication of tachycardia. ?The predominant rhythm was normal sinus and sinus tachycardia. Minimum heart rate 82 bpm, maximum heart rate 159 bpm, mean heart rate 105 bpm. ?There were no episodes of supraventricular tachycardia. There were rare (less than 1%) premature atrial contractions and no runs of multiple PACs. ?There were no episodes of ventricular tachycardia. There were rare (less than 1%) single ventricular ectopic beats. ?There were no episodes of atrial fibrillation, no pauses greater than 3 seconds and no episodes of high degree heart block.
== END 2019-01-30 16:06 ==
PROVIDERS: PCP Family Medicine; Visit Provider Family Medicine
DX: R00.0 Tachycardia, unspecified (principal); I49.1 Atrial premature depolarization; I49.3 Ventricular premature depolarization
CPT/HCPCS: 93226

== ENCOUNTER 2019-02-02 08:23 | Outpatient (CLI) | payer MEDICARE, BC, SELFPAY | END 2019-02-02 08:43 | PROVIDERS: PCP Family Medicine; Referring Provider Family Medicine; Visit Provider Internal Medicine Cardiovascular Disease | DX: R00.0 Tachycardia, unspecified (principal); I49.1 Atrial premature depolarization; I49.3 Ventricular premature depolarization | CPT/HCPCS: 93227 ==

== ENCOUNTER 2019-02-12 10:00 | Outpatient (RCR) | payer MEDICARE, BC, SELFPAY ==
[2019-01-15] MEDS: Normal Saline Flush 10 ML SYR IVP (13:12)
[2019-01-15] MEDS: Heparin 500 UNITS/5 ML SYRINGE IV (13:12)
[2019-01-15] MEDS: SODIUM FER. GLUC./SUC. 125 MG in Normal Saline 100 ML 110 MG IVPB (13:12)
[2019-02-05] MEDS: Heparin 500 UNITS/5 ML SYRINGE IV (13:05)
[2019-02-05] MEDS: Normal Saline Flush 10 ML SYR IVP (13:05)
[2019-02-05 13:17] LABS: Absolute Basophil Count 0.02 k/cumm (0.0-0.2); Absolute Monocyte Count 1.02 k/cumm (0.11-0.7); Absolute Neutrophil Count 11.14 k/cumm (1.2-6.7); Basophils % 0.1; Eosinophils % 0.3; HCT 28.5 % (36.0-46.0); HGB 8.6 g/dL (12.0-15.5); Immature Grans % 0.7; Lymphocytes % 18.9; Mean Corp. HGB Concentration 30.2 g/dL (32.0-36.0); Mean Corpuscular Hemoglobin 28.2 pg (27.0-33.0); Mean Corpuscular Volume 93.4 fL (80-95); Mean Platelet Volume 8.5 fL (8.0-11.0); Monocytes % 6.7; Neutrophils % 73.3; Platelet Count 315 x1000/uL (130-400); RBC 3.05 m/cumm (4.00-5.20); RBC Distribution Width 17.7 % (11.7-14.6)
[2019-02-05 13:19] LABS: Absolute Eosinophil Count 0.05 k/cumm (0.0-0.7); Absolute Lymphocyte Count 2.87 k/cumm (1.2-3.4)
[2019-02-05 13:24] LABS: ALT 19 U/L (14-59); AST 16 U/L (15-37); Albumin 2.7 g/dL (3.4-5.0); Alkaline Phosphatase 203 U/L (46-116); Anion Gap 10.9 mmol/L (3-11); BUN 21 mg/dL (7-18); Bilirubin, Total 0.2 mg/dL (0.2-1.0); CO2 26.1 mmol/L (21.0-32.0); CREATININE 0.72 mg/dL (0.55-1.02); Calcium 9.3 mg/dL (8.5-10.1); Chloride 99 mmol/L (98-107); Glucose 123 mg/dL (70-100); Potassium 3.8 mmol/L (3.5-5.1); Sodium 136 mmol/L (136-145); Total Protein 7.5 g/dL (6.4-8.2)
[2019-02-12] MEDS: Normal Saline Flush 10 ML SYR IVP (09:43)
[2019-02-12 09:56] LABS: Abs Immature Grans 0.03 k/cumm (0.0-0.09); Absolute Basophil Count 0.02 k/cumm (0.0-0.2); Absolute Eosinophil Count 0.09 k/cumm (0.0-0.7); Absolute Lymphocyte Count 2.79 k/cumm (1.2-3.4); Absolute Monocyte Count 0.77 k/cumm (0.11-0.7); Basophils % 0.2; Eosinophils % 1.1; HCT 28.8 % (36.0-46.0); HGB 8.8 g/dL (12.0-15.5); Immature Grans % 0.4; Lymphocytes % 33.2; Mean Corp. HGB Concentration 30.6 g/dL (32.0-36.0); Mean Corpuscular Hemoglobin 28.6 pg (27.0-33.0); Mean Corpuscular Volume 93.5 fL (80-95); Mean Platelet Volume 8.2 fL (8.0-11.0); Monocytes % 9.2; Platelet Count 511 x1000/uL (130-400); RBC 3.08 m/cumm (4.00-5.20); RBC Distribution Width 17.5 % (11.7-14.6)
[2019-02-12 10:12] LABS: ALT 18 U/L (14-59); AST 15 U/L (15-37); Albumin 2.7 g/dL (3.4-5.0); Alkaline Phosphatase 187 U/L (46-116); BUN 14 mg/dL (7-18); Bilirubin, Total 0.1 mg/dL (0.2-1.0); Calcium 9.4 mg/dL (8.5-10.1); Chloride 101 mmol/L (98-107); Glucose 112 mg/dL (70-100); Potassium 3.9 mmol/L (3.5-5.1); Sodium 138 mmol/L (136-145); Total Protein 7.7 g/dL (6.4-8.2)
[2019-02-12 10:26] LABS: Anisocytosis 2+; Diff Comment RBC Morph Reviewed; Hypochromasia 1+
[2019-02-12 10:27] LABS: Microcytosis 1+; Neutrophils % 55.9
== END 2019-02-12 23:59 | disposition home or self-care (01) ==
LOC: INF 10:00
PROVIDERS: PCP Family Medicine; Visit Provider Internal Medicine Hematology & Oncology
DX: D50.9 Iron deficiency anemia, unspecified (principal); C57.02 Malignant neoplasm of left fallopian tube; Z45.2 Encounter for adjustment and management of vascular access device
CPT/HCPCS: 36591; 80053; 96365; 96523; 85025; J3490

== ENCOUNTER 2019-02-19 02:46 | Outpatient (CLI) | payer MEDICARE, BC, SELFPAY ==
--- NOTE | 2019-02-19 12:15 | DI.US_ITS ---
APPROVED REPORT EXAM: Comprehensive 2D, Doppler, and color-flow Echocardiogram Patient Location: Out-Patient Sustainability Analyst: Sonia Gonzalez [facility] ([place]) Indications: tachycardia SOB r06.02 Conclusion Left Ventricle : The left ventricle is normal size. The posterior wall thickness is normal. The sept um is normal. Left ventricular systolic function is low normal. There is normal LV segmental wall mo tion. LVEF is 65-70%. The left ventricular diastolic function is normal. Right Ventricle : The right ventricle is normal size. The right ventricular systolic function is norm al. Atria : The left atrium size is normal. The right atrium size is normal. Aortic Valve : Aortic valve is trileaflet. No aortic regurgitation is present. There is no aortic whitley vular stenosis. Mitral Valve : Mitral valve leaflets appear myxomatous. The mitral valve is mildly thickened. Trivial mitral regurgitation. No evidence of mitral valve stenosis. Tricuspid Valve : Tricuspid valve leaflets are thickened but open well. Mild to moderate tricuspid re gurgitation. Great Vessels : IVC is normal in size and collapses >50% with inspiration. Estimated RVSP is 25-30 m mHg. There is no prior echocardiogram available for comparison. Wall motion Left Ventricle The left ventricle is normal size. Left ventricular systolic function is low normal. The posterior wa ll thickness is normal. The septum is normal. There is normal LV segmental wall motion. The left vent ricular diastolic function is normal. LVEF is 65-70%. Right Ventricle The right ventricle is normal size. The right ventricular systolic function is normal. Atria The left atrium size is normal. The right atrium size is normal. Aortic Valve Aortic valve is trileaflet. There is no aortic valvular stenosis. No aortic regurgitation is present. Mitral Valve Mitral valve leaflets appear myxomatous. The mitral valve is mildly thickened. No evidence of mitral valve stenosis. Trivial mitral regurgitation. Tricuspid Valve Tricuspid valve leaflets are thickened but open well. Mild to moderate tricuspid regurgitation. Pulmonic Valve Pulmonic valve is not well visualized. Great Vessels The aortic root is normal in mildly dilated. The ascending aorta size is normal IVC is normal in size and collapses >50% with inspiration. Estimated RVSP is 25-30 mmHg. Pericardium There is no pericardial effusion. 2D Dimensions IVSd 0.80 cm F: 0.6-1.0 LV EDV A2C 109.80 mL PWd 0.78 cm F: 0.6 - 1.0 LV EDV A4C 71.60 mL LVDd 4.14 cm F: 3.9 - 5.3 LA Volume Index A2C 21.46 mL/m2 LVDs 2.85 cm F: 2.2 - 3.5 LA Volume Index A4C 13.64 mL/m2 Aortic Root 3.48 cm F: 2.7 - 3.3 LA Volume Index Biplane 19.77 mL/m2 RA Area A4C 10.08 cm2 LA Area A4C 9.96 cm2 LVOT 1.99 cm (M/F) 1.5-2.5 LA Area A2C 14.44 cm2 Ascending Aorta 3.14 cm F: 2.3 - 3.1 EF AP4 67.32 % LVEF (Teich) 59.55 % EF AP2 66.30 % LVEF (Fine's) 65.70 % F: 54 - 74 EF BP 65.70 % LV Volume 73.41 mL F: 46 - 106 LV Volume Index 43.18 mL/m2 F: 29 - 61 FS 31.29 % LV Diastology E Decel Time 209.00 (160-240 msec) E/A Ratio 0.90 MED E' 0.07 (>0.07 m/s) LV E/e MED 8.51 (<14) LAT E' 0.11 (>0.1 m/s) LV E/e LAT 5.17 (<14) Pulm Vein s 1.04 m/s PV S/D Ratio 1.17 Pulm Vein d 0.89 m/s Pulm Vein a 1.23 m/s A-A Duration 113.27 msec Aortic Valve LVOT Area 3.10 cm2 LVOT Peak Quinten. 0.99 m/s LVOT Mean Quinten. 0.66 m/s LVOT Peak Gr. 3.96 mmHg OLGA Vmax Index 1.29 cm2/m2 LVOT Mean Gr. 2.02 mmHg LVOT VTI 0.17 m OLGA Mean Quinten. Index 1.11 cm2/m2 AoV Peak Quinten. 1.41 (0.5-1.3 m/s) AoV Mean Quinten. 1.08 m/s AO Peak GR. 7.90 mmHg AO Mean GR. 4.94 (<5 mmHg) AO VTI 0.24 (0.18-0.25 m) OLGA (VTI) 2.16 (2.5-4.5 cm2) OLGA (VTI) Index 1.27 cm/m2 Mitral Valve MV E Max Quinten. 0.58 (0.4-1.3 m/s) MV A Velocity 0.68 (0.4-1.3 m/s) E/A Ratio 0.85 MV Decel. Time 209.08 (160-240 msec) MV PHT 60.63 msec MVA PHT 3.63 cm2 Pulmonary Valve PV Peak Velocity 0.81 (0.5-1.5 m/s) Tricuspid Valve TR P. Velocity 2.53 m/s TV Regurg Vmax 2.53 m/s TR P. Gradient 25.60 mmHg
== END 2019-02-19 03:06 ==
PROVIDERS: PCP Family Medicine; Visit Provider Family Medicine
DX: R06.02 Shortness of breath (principal); R00.0 Tachycardia, unspecified; I34.8 Other nonrheumatic mitral valve disorders; I36.1 Nonrheumatic tricuspid (valve) insufficiency
CPT/HCPCS: 93306

== ENCOUNTER 2019-03-05 02:55 | Outpatient (RCR) | payer MEDICARE, BC, SELFPAY ==
[2019-03-05] MEDS: Normal Saline Flush 10 ML SYR IVP (07:41)
[2019-03-05 07:43] LABS: Abs Immature Grans 0.01 k/cumm (0.0-0.09); Absolute Basophil Count 0.03 k/cumm (0.0-0.2); Absolute Eosinophil Count 0.13 k/cumm (0.0-0.7); Absolute Lymphocyte Count 2.92 k/cumm (1.2-3.4); Absolute Neutrophil Count 3.05 k/cumm (1.2-6.7); Basophils % 0.4; Eosinophils % 1.9; HCT 32.9 % (36.0-46.0); HGB 10.2 g/dL (12.0-15.5); Immature Grans % 0.1; Lymphocytes % 42.7; Mean Corpuscular Hemoglobin 29.7 pg (27.0-33.0); Mean Corpuscular Volume 95.9 fL (80-95); Mean Platelet Volume 8.1 fL (8.0-11.0); Monocytes % 10.2; Neutrophils % 44.7; Platelet Count 253 x1000/uL (130-400); RBC 3.43 m/cumm (4.00-5.20); RBC Distribution Width 18.5 % (11.7-14.6); White Blood Cell Count 6.84 k/cumm (4.4-10.8)
[2019-03-05 08:01] LABS: ALT 26 U/L (14-59); AST 20 U/L (15-37); Albumin 3.4 g/dL (3.4-5.0); Alkaline Phosphatase 156 U/L (46-116); Anion Gap 6.1 mmol/L (3-11); BUN 21 mg/dL (7-18); Bilirubin, Total 0.2 mg/dL (0.2-1.0); CO2 27.9 mmol/L (21.0-32.0); CREATININE 0.72 mg/dL (0.55-1.02); Calcium 9.5 mg/dL (8.5-10.1); Chloride 104 mmol/L (98-107); Glucose 101 mg/dL (74-106); Potassium 4.2 mmol/L (3.5-5.1); Sodium 138 mmol/L (136-145); Total Protein 7.7 g/dL (6.4-8.2)
== END 2019-03-14 23:59 | disposition home or self-care (01) ==
LOC: INF 02:55
PROVIDERS: PCP Family Medicine; Visit Provider Internal Medicine Hematology & Oncology
DX: C57.02 Malignant neoplasm of left fallopian tube (principal); Z45.2 Encounter for adjustment and management of vascular access device
CPT/HCPCS: 36591; 80053; 85025

== ENCOUNTER 2019-03-26 01:06 | Outpatient (RCR) | payer MEDICARE, BC, SELFPAY ==
[2019-03-26] MEDS: Normal Saline Flush 10 ML SYR IVP (10:05)
[2019-03-26 10:29] LABS: Abs Immature Grans 0.01 k/cumm (0.0-0.09); Absolute Basophil Count 0.03 k/cumm (0.0-0.2); Absolute Eosinophil Count 0.11 k/cumm (0.0-0.7); Absolute Lymphocyte Count 2.82 k/cumm (1.2-3.4); Absolute Monocyte Count 0.55 k/cumm (0.11-0.7); Absolute Neutrophil Count 2.02 k/cumm (1.2-6.7); Basophils % 0.5; HCT 33.9 % (36.0-46.0); HGB 10.8 g/dL (12.0-15.5); Immature Grans % 0.2; Lymphocytes % 50.9; Mean Corp. HGB Concentration 31.9 g/dL (32.0-36.0); Mean Corpuscular Hemoglobin 31.2 pg (27.0-33.0); Mean Platelet Volume 8.5 fL (8.0-11.0); Monocytes % 9.9; Neutrophils % 36.5; Platelet Count 191 x1000/uL (130-400); RBC 3.46 m/cumm (4.00-5.20); RBC Distribution Width 17.2 % (11.7-14.6); White Blood Cell Count 5.54 k/cumm (4.4-10.8)
[2019-03-26 10:40] LABS: ALT 27 U/L (14-59); AST 20 U/L (15-37); Albumin 3.5 g/dL (3.4-5.0); Alkaline Phosphatase 149 U/L (46-116); Anion Gap 7.3 mmol/L (3-11); BUN 22 mg/dL (7-18); Bilirubin, Total 0.2 mg/dL (0.2-1.0); CO2 28.7 mmol/L (21.0-32.0); CREATININE 0.75 mg/dL (0.55-1.02); Calcium 9.2 mg/dL (8.5-10.1); Chloride 104 mmol/L (98-107); Glucose 97 mg/dL (74-106); Potassium 4.3 mmol/L (3.5-5.1); Sodium 140 mmol/L (136-145); Total Protein 7.3 g/dL (6.4-8.2)
[2019-03-27 11:41] LABS: CA 125 13 U/mL (<30)
== END 2019-04-14 23:59 | disposition home or self-care (01) ==
LOC: INF 01:06
PROVIDERS: PCP Family Medicine; Visit Provider Internal Medicine Hematology & Oncology
DX: C57.02 Malignant neoplasm of left fallopian tube (principal); Z45.2 Encounter for adjustment and management of vascular access device
CPT/HCPCS: 36591; 80053; 86304; 85025

== ENCOUNTER 2019-05-07 01:52 | Outpatient (RCR) | payer MEDICARE, BC, SELFPAY ==
[2019-04-16] MEDS: Normal Saline Flush 10 ML SYR IVP (07:38)
[2019-04-16 07:46] LABS: Abs Immature Grans 0.01 k/cumm (0.0-0.09); Absolute Basophil Count 0.02 k/cumm (0.0-0.2); Absolute Eosinophil Count 0.08 k/cumm (0.0-0.7); Absolute Lymphocyte Count 2.74 k/cumm (1.2-3.4); Absolute Monocyte Count 0.47 k/cumm (0.11-0.7); Absolute Neutrophil Count 2.03 k/cumm (1.2-6.7); Basophils % 0.4; Eosinophils % 1.5; HCT 33.9 % (36.0-46.0); HGB 11.3 g/dL (12.0-15.5); Immature Grans % 0.2; Lymphocytes % 51.2; Mean Corp. HGB Concentration 33.3 g/dL (32.0-36.0); Mean Corpuscular Hemoglobin 32.9 pg (27.0-33.0); Mean Corpuscular Volume 98.8 fL (80-95); Mean Platelet Volume 8.3 fL (8.0-11.0); Monocytes % 8.8; Neutrophils % 37.9; Platelet Count 210 x1000/uL (130-400); RBC 3.43 m/cumm (4.00-5.20); RBC Distribution Width 16.2 % (11.7-14.6); White Blood Cell Count 5.35 k/cumm (4.4-10.8)
[2019-04-16 08:10] LABS: ALT 30 U/L (14-59); AST 23 U/L (15-37); Albumin 3.5 g/dL (3.4-5.0); Alkaline Phosphatase 148 U/L (46-116); Anion Gap 6.6 mmol/L (3-11); BUN 19 mg/dL (7-18); Bilirubin, Total 0.2 mg/dL (0.2-1.0); CO2 29.4 mmol/L (21.0-32.0); CREATININE 0.77 mg/dL (0.55-1.02); Calcium 9.3 mg/dL (8.5-10.1); Chloride 105 mmol/L (98-107); Glucose 102 mg/dL (74-106); Potassium 4.1 mmol/L (3.5-5.1); Sodium 141 mmol/L (136-145); Total Protein 7.2 g/dL (6.4-8.2)
[2019-04-17 08:55] LABS: CA 125 7 U/mL (<30)
[2019-05-07] MEDS: Normal Saline Flush 10 ML SYR IVP (07:30)
[2019-05-07 07:42] LABS: Absolute Basophil Count 0.03 k/cumm (0.0-0.2); Absolute Eosinophil Count 0.11 k/cumm (0.0-0.7); Absolute Lymphocyte Count 2.26 k/cumm (1.2-3.4); Absolute Monocyte Count 0.51 k/cumm (0.11-0.7); Absolute Neutrophil Count 1.85 k/cumm (1.2-6.7); Basophils % 0.6; Eosinophils % 2.3; HCT 33.4 % (36.0-46.0); HGB 11.1 g/dL (12.0-15.5); Lymphocytes % 47.5; Mean Corp. HGB Concentration 33.2 g/dL (32.0-36.0); Mean Corpuscular Hemoglobin 33.4 pg (27.0-33.0); Mean Corpuscular Volume 100.6 fL (80-95); Mean Platelet Volume 8.3 fL (8.0-11.0); Monocytes % 10.7; Neutrophils % 38.9; Platelet Count 170 x1000/uL (130-400); RBC 3.32 m/cumm (4.00-5.20); RBC Distribution Width 15.2 % (11.7-14.6); White Blood Cell Count 4.76 k/cumm (4.4-10.8)
[2019-05-07 07:57] LABS: ALT 31 U/L (14-59); AST 22 U/L (15-37); Albumin 3.5 g/dL (3.4-5.0); Alkaline Phosphatase 144 U/L (46-116); Anion Gap 8.6 mmol/L (3-11); BUN 17 mg/dL (7-18); Bilirubin, Total 0.3 mg/dL (0.2-1.0); CO2 29.4 mmol/L (21.0-32.0); CREATININE 0.68 mg/dL (0.55-1.02); Calcium 8.8 mg/dL (8.5-10.1); Chloride 107 mmol/L (98-107); Glucose 98 mg/dL (74-106); Potassium 4.2 mmol/L (3.5-5.1); Sodium 145 mmol/L (136-145); Total Protein 6.9 g/dL (6.4-8.2)
== END 2019-05-15 23:59 | disposition home or self-care (01) ==
LOC: INF 01:52
PROVIDERS: PCP Family Medicine; Visit Provider Internal Medicine Hematology & Oncology
DX: C57.02 Malignant neoplasm of left fallopian tube (principal); Z45.2 Encounter for adjustment and management of vascular access device
CPT/HCPCS: 36591; 80053; 86304; 85025

== ENCOUNTER 2019-06-02 02:08 | Outpatient (CLI) | payer MEDICARE, BC, SELFPAY ==
--- NOTE | 2019-06-02 | DI.CT_ITS ---
EXAM: CT ABDOMEN PELVIS W CLINICAL HISTORY: FALLOPIAN TUBE CA,C57.02, ASSESS DISEASE AFTER TREATMENT TECHNIQUE: Imaging Protocol: Axial computed tomography images with coronal and sagittal reformatted images were created and reviewed CONTRAST MATERIAL: Intravenous: Omnipaque 350 Contrast volume:100 mL Oral: Yes COMPARISON: CT ABDOMEN PELVIS WO from 12/01/2018 CT CHEST PE CTA from 01/23/2019 FINDINGS: ABDOMEN: Lung Bases: Infiltrate in the right lower lobe which may represent atelectasis or pneumonia. Liver: Normal density. There is now a small area of decreased attenuation in the posterior medial asp ect of the right lobe of the liver. No discrete mass is appreciated. Portal, Superior Mesenteric, and Splenic Veins: Unremarkable. Gallbladder and Biliary Tract: No radiodense calculus or dilation. Pancreas: Normal density, no abnormal calcifications or inflammatory process. Spleen: Normal. Adrenals: No masses seen. Kidneys: Normal size, contour and axis. No radiodense stones or obstructive uropathy. No masses seen. Abdominal Aorta: Abdominal portion non-dilated. Atherosclerosis. Bowel: No obstruction or bowel wall thickening. No evidence of an acute appendicitis. The patient is status post colectomy with a left lower quadrant colostomy in place. Peritoneal Cavity: No ascites, collection or mesenteric inflammatory response. Lymph Nodes: Within normal limits. Bones: Degenerative changes present. Soft Tissues: Unremarkable. PELVIS: Bladder: Symmetric distention, no gross wall thickening. Reproductive Organs: Status post hysterectomy. Lymph Nodes: Within normal limits. Bones: Degenerative changes present. IMPRESSION: 1. Status post hysterectomy. No evidence of a pelvic mass. 2. Status post colectomy with left lower quadrant colostomy. 3. No evidence of a hepatic mass. 4. Right basilar infiltrate which may represent atelectasis or pneumonia. DATA REPOSITORY: All CT scans at this facility are submitted to the National Radiology Data Registry (NRDR) Dose Index Registry (DIR) with the [employer] (ACR). RADIATION OPTIMIZATION: All CT scans at this facility use at least one of these dose optimization te chniques: automated exposure control; mA and/or kV adjustment per patient size (includes targeted exa ms where dose is matched to clinical indication); or iterative reconstruction.
[2019-06-02] MEDS: Omnipaque 350 MG/ML 100 ML BTL IJ (08:59)
[2019-06-02] MEDS: Omnipaque 350 MG/ML 50 ML BTL IJ (09:02)
== END 2019-06-02 02:28 ==
PROVIDERS: PCP Family Medicine; Visit Provider Obstetrics & Gynecology Gynecologic Oncology
DX: C57.02 Malignant neoplasm of left fallopian tube (principal); Z12.89 Encounter for screening for malignant neoplasm of other sites; R91.8 Other nonspecific abnormal finding of lung field; K76.89 Other specified diseases of liver; Z93.3 Colostomy status; Z90.49 Acquired absence of other specified parts of digestive tract
CPT/HCPCS: 96523; 74177; J3490; Q9967

== ENCOUNTER 2019-06-02 02:15 | Outpatient (RCR) | payer MEDICARE, BC, SELFPAY ==
[2019-06-01] MEDS: Normal Saline Flush 10 ML SYR IVP (09:23)
[2019-06-01] MEDS: Heparin 500 UNITS/5 ML SYRINGE IV (09:23)
[2019-06-01 09:41] LABS: Abs Immature Grans 0.01 k/cumm (0.0-0.09); Absolute Basophil Count 0.03 k/cumm (0.0-0.2); Absolute Eosinophil Count 0.15 k/cumm (0.0-0.7); Absolute Lymphocyte Count 2.56 k/cumm (1.2-3.4); Absolute Neutrophil Count 1.46 k/cumm (1.2-6.7); Basophils % 0.6; Eosinophils % 3.2; HCT 31.8 % (36.0-46.0); HGB 10.8 g/dL (12.0-15.5); Immature Grans % 0.2 %; Lymphocytes % 54.4; Mean Corpuscular Hemoglobin 34.5 pg (27.0-33.0); Mean Corpuscular Volume 101.6 fL (80-95); Mean Platelet Volume 8.5 fL (8.0-11.0); Monocytes % 10.6; Platelet Count 166 x1000/uL (130-400); RBC 3.13 m/cumm (4.00-5.20); RBC Distribution Width 13.6 % (11.7-14.6); White Blood Cell Count 4.71 k/cumm (4.4-10.8)
[2019-06-01 09:52] LABS: ALT 37 U/L (14-59); AST 23 U/L (15-37); Albumin 3.6 g/dL (3.4-5.0); Alkaline Phosphatase 163 U/L (46-116); Anion Gap 7.2 mmol/L (3-11); BUN 18 mg/dL (7-18); Bilirubin, Total 0.3 mg/dL (0.2-1.0); CO2 30.8 mmol/L (21.0-32.0); CREATININE 0.67 mg/dL (0.55-1.02); Calcium 9.3 mg/dL (8.5-10.1); Chloride 104 mmol/L (98-107); Glucose 85 mg/dL (74-106); Potassium 4.1 mmol/L (3.5-5.1); Sodium 142 mmol/L (136-145); Total Protein 7.2 g/dL (6.4-8.2)
[2019-06-02] MEDS: Heparin 500 UNITS/5 ML SYRINGE IV (09:30)
[2019-06-02] MEDS: Normal Saline Flush 10 ML SYR IVP (09:31)
[2019-06-02 09:58] LABS: CA 125 8 U/mL (<30)
== END 2019-06-13 23:59 | disposition home or self-care (01) ==
LOC: INF 02:15
PROVIDERS: Internal Medicine Hematology & Oncology; PCP Family Medicine; Visit Provider Obstetrics & Gynecology Gynecologic Oncology
DX: C57.02 Malignant neoplasm of left fallopian tube (principal); Z45.2 Encounter for adjustment and management of vascular access device
CPT/HCPCS: 36591; 80053; 86304; 96523; 85025

== ENCOUNTER 2019-09-01 02:27 | Outpatient (RCR) | payer MEDICARE, BC, SELFPAY ==
[2019-09-01] MEDS: Normal Saline Flush 10 ML SYR IVP (09:11)
[2019-09-01] MEDS: Heparin 500 UNITS/5 ML SYRINGE IV (09:11)
[2019-09-01 09:14] LABS: Absolute Basophil Count 0.02 k/cumm (0.0-0.2); Absolute Eosinophil Count 0.28 k/cumm (0.0-0.7); Absolute Lymphocyte Count 2.94 k/cumm (1.2-3.4); Absolute Monocyte Count 0.44 k/cumm (0.11-0.7); Absolute Neutrophil Count 1.54 k/cumm (1.2-6.7); Basophils % 0.4; Eosinophils % 5.4; HCT 35.2 % (36.0-46.0); HGB 12.2 g/dL (12.0-15.5); Lymphocytes % 56.3; Mean Corp. HGB Concentration 34.7 g/dL (32.0-36.0); Mean Corpuscular Hemoglobin 34.2 pg (27.0-33.0); Mean Corpuscular Volume 98.6 fL (80-95); Mean Platelet Volume 8.2 fL (8.0-11.0); Monocytes % 8.4; Neutrophils % 29.5; Platelet Count 173 x1000/uL (130-400); RBC 3.57 m/cumm (4.00-5.20); RBC Distribution Width 11.2 % (11.7-14.6); White Blood Cell Count 5.22 k/cumm (4.4-10.8)
[2019-09-01 09:28] LABS: ALT 25 U/L (14-59); AST 21 U/L (15-37); Albumin 3.7 g/dL (3.4-5.0); Alkaline Phosphatase 121 U/L (46-116); Anion Gap 4.3 mmol/L (3-11); BUN 22 mg/dL (7-18); Bilirubin, Total 0.4 mg/dL (0.2-1.0); CO2 30.7 mmol/L (21.0-32.0); CREATININE 1.07 mg/dL (0.55-1.02); Calcium 9.5 mg/dL (8.5-10.1); Chloride 103 mmol/L (98-107); Estimated GFR 50.41 (mL/min/1.73m2); Glucose 93 mg/dL (74-106); Potassium 4.1 mmol/L (3.5-5.1); Sodium 138 mmol/L (136-145); Total Protein 7.3 g/dL (6.4-8.2)
[2019-09-02 10:51] LABS: CA 125 7 U/mL (<30)
== END 2019-09-13 23:59 | disposition home or self-care (01) ==
LOC: INF 02:27
PROVIDERS: PCP Family Medicine; Visit Provider Internal Medicine Hematology & Oncology
DX: C57.02 Malignant neoplasm of left fallopian tube (principal); Z45.2 Encounter for adjustment and management of vascular access device
CPT/HCPCS: 36591; 80053; 86304; 85025

== ENCOUNTER 2019-09-29 12:36 | Outpatient (CLI) | payer MEDICARE, BC, SELFPAY ==
--- NOTE | 2019-09-29 13:00 | DI.RAD_ITS ---
EXAM: XR KNEE LT 3V AP,LAT,ASHLY CLINICAL HISTORY: Left knee pain, M25.562. TECHNIQUE: 2D digital imaging was performed. COMPARISON: CR RIGHT KNEE 3 VIEWS from 06/13/2010 FINDINGS: There is severe narrowing of the medial femoral tibial joint. There is prominent periarticular spurr ing, sclerosis and subchondral cyst formation. There is varus angulation at the knee. There is also prominent spurring seen at the lateral femoral tibial joint and patellofemoral joint. A small joint effusion is seen. IMPRESSION: Severe degenerative changes, greatest of the medial femoral tibial joint. DATA REPOSITORY: RADIATION DOSE DELIVERED:
== END 2019-09-29 12:56 ==
PROVIDERS: PCP Family Medicine; Visit Provider Family Medicine
DX: M25.562 Pain in left knee (principal); M25.462 Effusion, left knee; M17.12 Unilateral primary osteoarthritis, left knee
CPT/HCPCS: 73562

== ENCOUNTER → 2019-10-26 10:43 | Outpatient (BNVA) | payer MEDICARE, BC, SELFPAY | PROVIDERS: PCP Family Medicine; Referring Provider Family Medicine; Visit Provider Student in an Organized Health Care Education/Training Program | DX: M17.12 Unilateral primary osteoarthritis, left knee (principal); M25.562 Pain in left knee | CPT/HCPCS: 20610; 99203; 99214; J1040 ==

== ENCOUNTER → 2020-02-08 14:11 | Outpatient (BNVA) | payer MEDICARE, BC, SELFPAY | PROVIDERS: PCP Family Medicine; Referring Provider Family Medicine; Visit Provider Student in an Organized Health Care Education/Training Program | DX: M17.12 Unilateral primary osteoarthritis, left knee (principal) | CPT/HCPCS: 20610; 99213; J7325 ==

== ENCOUNTER 2020-05-23 02:16 | Outpatient (RCR) | payer MEDICARE, BC, SELFPAY ==
[2020-05-23] MEDS: Normal Saline Flush 10 ML SYR IVP (10:14)
[2020-05-23] MEDS: Heparin 500 UNITS/5 ML SYRINGE IV (10:14)
[2020-05-24 09:37] LABS: CA 125 5 U/mL (<30)
== END 2020-06-12 23:59 | disposition home or self-care (01) ==
LOC: INF 02:16
PROVIDERS: PCP Family Medicine; Visit Provider Obstetrics & Gynecology Gynecologic Oncology
DX: C57.00 Malignant neoplasm of unspecified fallopian tube (principal); Z45.2 Encounter for adjustment and management of vascular access device
CPT/HCPCS: 36591; 86304

== ENCOUNTER → 2020-06-09 10:47 | Outpatient (BNVA) | payer MEDICARE, BC, SELFPAY | PROVIDERS: PCP Family Medicine; Referring Provider Family Medicine; Visit Provider Physician Assistant Surgical | DX: M17.12 Unilateral primary osteoarthritis, left knee (principal) | CPT/HCPCS: 20610; J7325 ==

== ENCOUNTER 2020-08-22 02:56 | Outpatient (RCR) | payer MEDICARE, BC, SELFPAY ==
[2020-08-22] MEDS: Heparin 500 UNITS/5 ML SYRINGE IV (14:50)
[2020-08-22] MEDS: Normal Saline Flush 10 ML SYR IVP (14:50)
[2020-08-24 12:19] LABS: CA 125 5 U/mL (<30)
== END 2020-09-12 23:59 | disposition home or self-care (01) ==
LOC: INF 02:56
PROVIDERS: PCP Family Medicine; Visit Provider Obstetrics & Gynecology Gynecologic Oncology
DX: C57.00 Malignant neoplasm of unspecified fallopian tube (principal); Z45.2 Encounter for adjustment and management of vascular access device
CPT/HCPCS: 36591; 86304

== ENCOUNTER 2020-11-17 03:13 | Outpatient (RCR) | payer MEDICARE, BC, SELFPAY ==
[2020-11-17] MEDS: Heparin 500 UNITS/5 ML SYRINGE (11:12)
[2020-11-17] MEDS: Normal Saline Flush 10 ML SYR IVP (11:15)
[2020-11-17 11:42] LABS: Abs Immature Grans 0.02 10^3/uL (0.0-0.06); Absolute Basophil Count 0.03 10^3/uL (0.0-0.2); Absolute Eosinophil Count 0.16 10^3/uL (0.0-0.7); Absolute Lymphocyte Count 2.86 10^3/uL (1.2-3.4); Absolute Monocyte Count 0.45 10^3/uL (0.1-0.8); Absolute Neutrophil Count 2.28 10^3/uL (1.2-6.7); Basophils % 0.5; Eosinophils % 2.8; HCT 34.8 % (36.0-46.0); Immature Grans % 0.3; Lymphocytes % 49.3; MCHC 34.5 % (32.0-36.0); MCV 92.8 fL (80-95); MPV 9.2 fL (8.0-11.0); Monocytes % 7.8; Neutrophils % 39.3; Nucleated RBC 0 %; Platelet Count 184 10^3/uL (130-400); RBC 3.75 10^6/uL (3.93-5.22); RDW 11.9 % (11.7-14.6); RDW-SD 40.6 fL
[2020-11-17 11:57] LABS: ALT 19 U/L (14-59); AST 20 U/L (15-37); Albumin 3.9 g/dL (3.4-5.0); Alkaline Phosphatase 118 U/L (46-116); Anion Gap 5.3 mmol/L (3-11); BUN 14 mg/dL (7-18); Bilirubin, Total 0.4 mg/dL (0.2-1.0); CO2 30.7 mmol/L (21.0-32.0); CREATININE 0.9 mg/dL (0.55-1.02); Calcium 9.5 mg/dL (8.5-10.1); Chloride 100 mmol/L (98-107); Glucose 85 mg/dL (74-106); Potassium 4.2 mmol/L (3.5-5.1); Sodium 136 mmol/L (136-145); Total Protein 7.3 g/dL (6.4-8.2)
[2020-11-18 10:48] LABS: CA 125 6 U/mL (<30)
== END 2020-12-13 23:59 | disposition home or self-care (01) ==
LOC: INF 03:13
PROVIDERS: PCP Family Medicine; Visit Provider Obstetrics & Gynecology Gynecologic Oncology
DX: C57.02 Malignant neoplasm of left fallopian tube (principal); Z45.2 Encounter for adjustment and management of vascular access device
CPT/HCPCS: 36591; 80053; 86304; 85025

== ENCOUNTER 2020-12-08 11:00 | Outpatient (CLI) | payer MEDICARE, BC, SELFPAY ==
--- NOTE | 2020-12-08 10:45 | DI.RAD_ITS ---
Exam(s) XR STANDING ALIGNMENT EXAM: XR STANDING ALIGNMENT CLINICAL HISTORY: left knee DJD, pre TKA. TECHNIQUE: 2D digital imaging was performed. COMPARISON: CR XR KNEE LT 3V AP,LAT,ASHLY from 09/29/2019 CR XR KNEE LT 3V AP,LAT,ASHLY from 09/29/2019 FINDINGS: There is right knee prosthesis. Components appear to be in satisfactory position alignment. Advance d degenerative changes in the opposite-left knee are again noted with bone on bone apposition in the medial compartment. Lateral compartment left knee exhibits preserved height and moderate degenerativ e changes. Hips appear unremarkable as do the ankles. No ominous osseous lesions evident. IMPRESSION: DATA REPOSITORY: RADIATION DOSE DELIVERED:
== END 2020-12-08 11:01 | disposition home or self-care (01) ==
LOC: DIORS 11:00
PROVIDERS: PCP Family Medicine; Referring Provider Family Medicine; Visit Provider Student in an Organized Health Care Education/Training Program
DX: M17.12 Unilateral primary osteoarthritis, left knee (principal)
CPT/HCPCS: 99213; 77073

== ENCOUNTER 2021-01-05 00:43 | Outpatient (CLI) | payer MEDICARE, BC, SELFPAY ==
--- NOTE | 2021-01-05 07:30 | DI.MAMMO_ITS ---
Exam(s) MAMMO SCREENING EXAM: MAMMO SCREENING CLINICAL HISTORY: screening.Z12.39. TECHNIQUE: Bilateral full field digital CC and MLO mammographic images were obtained with 3D tomosyn thesis and utilizing computer aided detection (CAD). COMPARISON: Prior mammograms dating back to 2011, the most recent being May 2017. FINDINGS: There are no new spiculated masses nor malignant appearing microcalcification groups. There is no significant architectural distortion nor skin thickening-retraction. IMPRESSION: No radiographic evidence of malignancy. BI-RADS Category 1 - Negative Breast Density - Category B - Scattered areas of fibroglandular density Breast density Category C or D implies that the patient has dense breast tissue. Dense breast tissue can make it harder to find cancer on a mammogram. Dense breast tissue is also associated with an incr eased risk of breast cancer. This information about the result of the mammogram report was provided to the patient to raise their awareness. Use this report when you speak with the patient about their risks for breast cancer, which includes their family history. At that time, you may recommend additional screening tests (Ultrasoun d or MRI) as these tests may add significant information. A negative radiographic report should not delay biopsy if a dominant or clinically suspicious mass is present. Up to ten percent of cancers are not identified on mammography. A negative report may reinforce clinical impression. Adenosis and dense breasts may obscure an underlying neoplasm. False positive reports average 6 to 10%. Patient will receive a letter notifying them of these results.
== END 2021-01-05 01:03 ==
PROVIDERS: PCP Family Medicine; Visit Provider Family Medicine
DX: Z12.31 Encounter for screening mammogram for malignant neoplasm of breast (principal)
CPT/HCPCS: 77063; 77067

== ENCOUNTER → 2021-01-19 13:13 | Outpatient (BNVA) | payer MEDICARE, BC, SELFPAY | PROVIDERS: PCP Family Medicine; Referring Provider Family Medicine | DX: Z01.818 Encounter for other preprocedural examination (principal); M17.12 Unilateral primary osteoarthritis, left knee ==

== ENCOUNTER 2021-01-23 01:32 | Outpatient (CLI) | payer MEDICARE, BC, SELFPAY ==
[2021-01-23 09:55] LABS: HCT 36.5 % (36.0-46.0); HGB 12.3 g/dL (11.2-15.7); MCH 31.6 pg (27.0-33.0); MCHC 33.7 % (32.0-36.0); MCV 93.8 fL (80-95); MPV 9.1 fL (8.0-11.0); Platelet Count 172 10^3/uL (130-400); RBC 3.89 10^6/uL (3.93-5.22); RDW 12.2 % (11.7-14.6); WBC 5.58 10^3/uL (4.4-10.8)
[2021-01-23 13:59] LABS: BUN 13 mg/dL (7-18); CO2 28.2 mmol/L (21.0-32.0); CREATININE 0.9 mg/dL (0.55-1.02); Calcium 9.3 mg/dL (8.5-10.1); Glucose 88 mg/dL (74-106); Potassium 4.3 mmol/L (3.5-5.1); Sodium 139 mmol/L (136-145)
[2021-01-23 14:19] LABS: Anion Gap 8.8 mmol/L (3-11); Chloride 102 mmol/L (98-107)
== END 2021-01-23 01:33 | disposition home or self-care (01) ==
LOC: LBO 01:32
PROVIDERS: PCP Family Medicine; Visit Provider Student in an Organized Health Care Education/Training Program
DX: M25.562 Pain in left knee (principal); M17.12 Unilateral primary osteoarthritis, left knee; Z01.818 Encounter for other preprocedural examination; Z01.812 Encounter for preprocedural laboratory examination
CPT/HCPCS: 80048; 85027

== ENCOUNTER 2021-01-23 01:32 | Outpatient (CLI) | payer MEDICARE, BC, SELFPAY ==
[2021-01-23 11:08] LABS: Source Nasal/Nares
[2021-01-23 18:07] LABS: COVID-19 PCR Negative (Negative)
== END 2021-01-23 01:33 | disposition home or self-care (01) ==
LOC: LBO 01:32
PROVIDERS: PCP Family Medicine; Visit Provider Student in an Organized Health Care Education/Training Program
DX: Z20.822 Contact with and (suspected) exposure to COVID-19 (principal); Z01.818 Encounter for other preprocedural examination
CPT/HCPCS: 80048; 85027; 87635

== ENCOUNTER 2021-01-24 07:25 | Day surgery (SDC) | payer MEDICARE, BC, SELFPAY ==
[2021-01-24] VITALS (9 sets, daily range): BP systolic 96–118; BP diastolic 56–75; PULSE 68–89; RESP 12–18; TEMP 36–36.6; O2SAT 95–98; BMI 29.5
--- NOTE | 2021-01-24 07:25 | W.PM.DS.N ---
Documented by User: Samantha Hailexon 01/24/21 10:26 DS: Diagnosis Discharge Diagnosis (1) Unilateral primary osteoarthritis, left knee: Status: Chronic Discharge Plan Disposition Patient Disposition: HOME Condition: Good Discharge Details Reason For Visit: Left knee DJD Attending Provider: Macho Fields Primary Care Provider: Jovanna Hawkins Home Meds and New Rx's Prescriptions: New celecoxib [Celebrex] 200 mg capsule 200 mg PO BID Qty: 30 RF: 0 aspirin 81 mg tablet,delayed release (DR/EC) 81 mg PO BID 30 Days Qty: 60 RF: 0 acetaminophen 500 mg tablet 500 mg PO Q6H PRN (Reason: pain) Qty: 60 RF: 2 pantoprazole 40 mg tablet,delayed release (DR/EC) 40 mg PO DAILY Qty: 30 RF: 0 gabapentin 300 mg capsule 300 mg PO QHS Qty: 14 RF: 0 docusate sodium [Colace] 100 mg capsule 100 mg PO BID Qty: 30 RF: 0 oxycodone 5 mg tablet 5 mg PO Q4H PRN (Reason: severe post-operative pain) Qty: 18 RF: 0 Continued calcium carbonate-vitamin D3 [Caltrate with Vitamin D3] 600 mg(1,500mg) -800 unit tablet 1 tab PO DAILY RF: 0 hydroxychloroquine 200 mg tablet 200 mg PO DAILY RF: 0 lorazepam 0.5 mg tablet 0.5 mg PO BID PRN (Reason: anxiety) Qty: 60 RF: 2 cetirizine 10 MG tablet 10 mg PO DAILY Qty: 90 RF: 4 acetaminophen [Tylenol] 325 mg Capsule 650 mg PO Q6H PRN PRNRF: 0 Discharge Instructions Additional Instructions: Total Knee Discharge Instructions Activity: The most important activity is to walk. You should try to take short walks a few times a day. It is important that when resting you work on keeping the knee straight. Avoid putting a pillow behind the knee as this will encourage flexion. Work on range of motion exercises as provided by Physical Therapy. If you have the [employer] bike coming, this will be your primary tool for exercise after the knee replacement. You should use it and follow the directions for the knee. Utilize the other exercises sparingly based on your symptoms. - Start outpatient physical therapy within 2 weeks. - You should wear the NELLY hose on both legs for 2 weeks. You may remove these at night. You may also use any compression sock in place of the NELLY hose. - Utilize [employer] to review exercises, see videos on exercises and obtain basic information pertaining to your surgery and your recovery. Dressing: Remove the Blayne wrap by 2 days after your surgery and put on the NELLY stocking given to you from the hospital. Keep the surgical dressing (underneath the BLAYNE wrap) in place for at least one week. After the first week it may be removed and replaced with light gauze and tape or nothing. The wound and dressing may get wet after 3 days but avoid soaking the dressing or otherwise it will need to be changed. Many people prefer covering the dressing with cling wrap (saran wrap) to minimize it from getting soaked. If it gets wet, just pat dry. If it starts to peel off then it will need to be changed. Medications: - You should take Tylenol and anti-inflammatory Celebrex as your primary pain control medications. If the Celebrex is too expensive or not covered, please call the office for another alternative (Advil/Ibuprofen or Naproxen/Aleve) - You have been prescribed a stronger pain medication Oxycodone for breakthrough pain, take as needed as prescribed. - You have also been prescribed a stomach acid reduction agent Pantoprozole to help reduce stomach acid and reflux. - You have been prescribed Gabapentin to take at night for restlessness and nerve pain. - You will be taking Aspirin 81mg twice a day for DVT prevention unless instructed otherwise. - If you have constipation you should take Colace (which has been prescribed) or Miralax (which you may purchase [id number]). It takes most people 3-4 days to have a bowel movement. Follow-up: 2 weeks If you have any acute concerns or questions, please do not hesitate to contact the office at [phone]. You may contact Dr. Fiedls with any questions after hours through the hospital at [phone] or on his cell phone at [phone]. 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 with infracolic omentectomy, periaoric lymphadenectomy and rectosigmoid resection with colpoproctostomy. 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 +YEN titer-80 06/18; presently on Plaquenil and seeing container washer Knee pain RIGHT; DJD medial tibiofemoral jt. S/P TKR Osteopenia Postmenopausal bleeding EMBX Benign. Surgical History (Updated 01/23/21 @ 11:40 by Ryan Ybarra) Arthroscopy (~08/2007) Right WRIST Colonoscopy - MAC Extraction of cataract 04/03/16-RIGHT EYE LEFT EYE DATE? History of right knee joint replacement Replacement of total knee joint (~06/2011) Status post colostomy Status post ALEJANDRA-BSO 11/20/18. with infracolic omentectomy, periaoric lymphadenectomy and rectosigmoid resection with colpoproctostomy. Family History (Updated 06/03/20 @ 08:34 by Raquel Delgado) Mother , 88 Essential hypertension OA (osteoarthritis) Parkinson disease Father , 90 Essential hypertension Heart disease CABG Stroke Sister Essential hypertension Arthritis Sister Arthritis Breast cancer Brother Essential hypertension Arthritis Maternal Grandfather , 80+ No problems noted. Paternal Grandfather , 84 No problems noted. Maternal Grandmother , 80+ No problems noted. Son No problems noted. Daughter No problems noted. Social History (Updated 06/03/20 @ 08:33 by Raquel Delgado) Smoking/Tobacco Use Status: Never Second Hand Exposure: Yes Smoking risk assessment performed?: Yes Alcohol Intake: current Alcohol Intake frequency: a few times a week Alcohol type: wine Drug use: Never Substance use type: does not use Caregiver/Support person: No Household members: spouse Housing: house Communication Needs: None Do you need help understanding health information?: Rarely Pets and animals: No Do you think of yourself as: straight/heterosexual Current gender identity: male What is your relationship status?: How often do you talk on the phone with friends or family?: three or more times per week How often do you get together with friends or relatives?: never How often do you attend mu-ism or confucianist services?: 4 or more times per year Do you belong to any clubs or organized social groups?: yes Panel score (0-1 are the most socially isolated patients): 4 What type of physical activity do you participate in: other Details: Strong Living Frequency: 1-2 times per week Marleny/Zoroastrianism: Taoism Special marleny needs: No Seatbelt use: always Helmet use: No Drive intox or ride w/intox class c driver: No Do you feel safe at home: Yes Do you feel safe in your relationship?: Yes Female Reproductive History Menstrual Menopause type: natural Documented by User: Macho Fields MD 01/24/21 13:43 Date of service: 01/24/21 Time of Service: 11:20 Discharge Plan Disposition Patient Disposition: HOME Condition: Good Discharge Details Reason For Visit: Left knee DJD Attending Provider: Macho Fields Primary Care Provider: Jovanna Hawkins Home Meds and New Rx's Prescriptions: New celecoxib [Celebrex] 200 mg capsule 200 mg PO BID Qty: 30 RF: 0 aspirin 81 mg tablet,delayed release (DR/EC) 81 mg PO BID 30 Days Qty: 60 RF: 0 acetaminophen 500 mg tablet 500 mg PO Q6H PRN (Reason: pain) Qty: 60 RF: 2 pantoprazole 40 mg tablet,delayed release (DR/EC) 40 mg PO DAILY Qty: 30 RF: 0 gabapentin 300 mg capsule 300 mg PO QHS Qty: 14 RF: 0 docusate sodium [Colace] 100 mg capsule 100 mg PO BID Qty: 30 RF: 0 oxycodone 5 mg tablet 5 mg PO Q4H PRN (Reason: severe post-operative pain) Qty: 18 RF: 0 Continued calcium carbonate-vitamin D3 [Caltrate with Vitamin D3] 600 mg(1,500mg) -800 unit tablet 1 tab PO DAILY RF: 0 hydroxychloroquine 200 mg tablet 200 mg PO DAILY RF: 0 lorazepam 0.5 mg tablet 0.5 mg PO BID PRN (Reason: anxiety) Qty: 60 RF: 2 cetirizine 10 MG tablet 10 mg PO DAILY Qty: 90 RF: 4 acetaminophen [Tylenol] 325 mg Capsule 650 mg PO Q6H PRN PRNRF: 0 Discharge Instructions Additional Instructions: Total Knee Discharge Instructions Activity: The most important activity is to walk. You should try to take short walks a few times a day. It is important that when resting you work on keeping the knee straight. Avoid putting a pillow behind the knee as this will encourage flexion. Work on range of motion exercises as provided by Physical Therapy. If you have the [employer] bike coming, this will be your primary tool for exercise after the knee replacement. You should use it and follow the directions for the knee. Utilize the other exercises sparingly based on your symptoms. - Start outpatient physical therapy within 2 weeks. - You should wear the NELLY hose on both legs for 2 weeks. You may remove these at night. You may also use any compression sock in place of the NELLY hose. - Utilize [employer] to review exercises, see videos on exercises and obtain basic information pertaining to your surgery and your recovery. Dressing: Remove the Blayne wrap by 2 days after your surgery and put on the NELLY stocking given to you from the hospital. Keep the surgical dressing (underneath the BLAYNE wrap) in place for at least one week. After the first week it may be removed and replaced with light gauze and tape or nothing. The wound and dressing may get wet after 3 days but avoid soaking the dressing or otherwise it will need to be changed. Many people prefer covering the dressing with cling wrap (saran wrap) to minimize it from getting soaked. If it gets wet, just pat dry. If it starts to peel off then it will need to be changed. Medications: - You should take Tylenol and anti-inflammatory Celebrex as your primary pain control medications. If the Celebrex is too expensive or not covered, please call the office for another alternative (Advil/Ibuprofen or Naproxen/Aleve) - You have been prescribed a stronger pain medication Oxycodone for breakthrough pain, take as needed as prescribed. - You have also been prescribed a stomach acid reduction agent Pantoprozole to help reduce stomach acid and reflux. - You have been prescribed Gabapentin to take at night for restlessness and nerve pain. - You will be taking Aspirin 81mg twice a day for DVT prevention unless instructed otherwise. - If you have constipation you should take Colace (which has been prescribed) or Miralax (which you may purchase [id number]). It takes most people 3-4 days to have a bowel movement. Follow-up: 2 weeks If you have any acute concerns or questions, please do not hesitate to contact the office at [phone]. You may contact Dr. Fields with any questions after hours through the hospital at [phone] or on his cell phone at [phone]. Stand Alone Forms: Anesthesia Discharge Inst., Joao.Nerve Block Instructions, Scopolamine Skin Patch Referrals: Macho Fields MD [ [facility] STAFF PHYSICIAN] - Equipment/Supplies: Walker Activity:: Elevate Remove Dressings/Wound Care:: Do Not Remove Shower/Bathe:: Cover Diet:: As Tolerated Discharge Orders Discharge Orders: Discharge Order (Routine); Ordered 01/24/21 Ordered By: Macho Fields DS: Summary Time Spent with Patient providing and/or coordinating discharge services: Less than 30 minutes Status at Discharge Functional status at discharge: uses cane/walker Overall status at discharge: patient is progressing back to baseline Mental Status: mental status grossly normal Speech and Movement: speech and movement normal Mood: congruent mood Affect: normal affect Exam Psych Mental Status: mental status grossly normal Speech and Movement: speech and movement normal Mood: congruent mood Affect: normal affect [facility] Medical History 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 with infracolic omentectomy, periaoric lymphadenectomy and rectosigmoid resection with colpoproctostomy. 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 +YEN titer-80 06/18; presently on Plaquenil and seeing container washer Knee pain RIGHT; DJD medial tibiofemoral jt. S/P TKR Osteopenia Postmenopausal bleeding EMBX Benign. Surgical History (Updated 01/23/21 @ 11:40 by Ryan Ybarra) Arthroscopy (~08/2007) Right WRIST Colonoscopy - MAC Extraction of cataract 04/03/16-RIGHT EYE LEFT EYE DATE? History of right knee joint replacement Replacement of total knee joint (~06/2011) Status post colostomy Status post ALEJANDRA-BSO 11/20/18. with infracolic omentectomy, periaoric lymphadenectomy and rectosigmoid resection with colpoproctostomy. Family History (Updated 06/03/20 @ 08:34 by Raquel Delgado) Mother , 88 Essential hypertension OA (osteoarthritis) Parkinson disease Father , 90 Essential hypertension Heart disease CABG Stroke Sister Essential hypertension Arthritis Sister Arthritis Breast cancer Brother Essential hypertension Arthritis Maternal Grandfather , 80+ No problems noted. Paternal Grandfather , 84 No problems noted. Maternal Grandmother , 80+ No problems noted. Son No problems noted. Daughter No problems noted. Social History (Updated 06/03/20 @ 08:33 by Raquel Delgado) Smoking/Tobacco Use Status: Never Second Hand Exposure: Yes Smoking risk assessment performed?: Yes Alcohol Intake: current Alcohol Intake frequency: a few times a week Alcohol type: wine Drug use: Never Substance use type: does not use Caregiver/Support person: No Household members: spouse Housing: house Communication Needs: None Do you need help understanding health information?: Rarely Pets and animals: No Do you think of yourself as: straight/heterosexual Current gender identity: male What is your relationship status?: How often do you talk on the phone with friends or family?: three or more times per week How often do you get together with friends or relatives?: never How often do you attend mu-ism or confucianist services?: 4 or more times per year Do you belong to any clubs or organized social groups?: yes Panel score (0-1 are the most socially isolated patients): 4 What type of physical activity do you participate in: other Details: Strong Living Frequency: 1-2 times per week Marleny/Zoroastrianism: Taoism Special marleny needs: No Seatbelt use: always Helmet use: No Drive intox or ride w/intox class c driver: No Do you feel safe at home: Yes Do you feel safe in your relationship?: Yes
--- NOTE | 2021-01-24 08:01 | W.ANESPRE ---
General Info Date of Service Date Performed: 01/24/21 Height: 5 ft 4 in Weight: 77.9 kg Body Mass Index (BMI): 29.5 Surgical Procedure: Operation Date: 01/24/21 09:25 Proposed Procedures Side Surgeon p Knee Total Arthroplasty (L) Left Macho Fields MD Meds Allergies and Home Medications Allergies Allergy/AdvReac Type Severity Reaction Status Date / Time No Known Allergies Allergy Unverified 01/24/21 07:51 Home Medication Medication Instructions Recorded cetirizine 10 mg PO DAILY #90 tab-cap 12/16/12 acetaminophen [Tylenol] 650 mg PO Q6H PRN PRN 12/01/18 calcium carbonate-vitamin D3 600 1 tab PO DAILY tab 09/29/19 mg (1,500 mg)-800 unit tablet hydroxychloroquine 200 mg tablet 200 mg PO DAILY tab 12/05/20 lorazepam 0.5 mg tablet 0.5 mg PO BID PRN #60 tab 12/05/20 acetaminophen 500 mg PO Q6H PRN #60 tab 01/24/21 aspirin 81 mg PO BID 30 Days #60 tab 01/24/21 celecoxib [Celebrex] 200 mg PO BID #30 cap 01/24/21 docusate sodium [Colace] 100 mg PO BID #30 cap 01/24/21 gabapentin 300 mg PO QHS #14 cap 01/24/21 oxycodone 5 mg PO Q4H PRN #18 tab 01/24/21 pantoprazole 40 mg PO DAILY #30 tab 01/24/21 Current Visit Medications: Current Medications Generic Name Dose Route Start Last Admin Trade Name Freq PRN Reason Stop Dose Admin Acetaminophen 1,000 mg 01/24/21 06:00 Acetaminophen 500 Mg Tab PO 01/24/21 23:59 PREOP RADHA Acetaminophen 1,000 mg 01/24/21 09:00 Acetaminophen 500 Mg Tab PO TID RADHA Aspirin 81 mg 01/24/21 09:00 Aspirin E.C. 81 Mg Tabec PO BID RADHA Celecoxib 400 mg 01/24/21 06:00 Celecoxib 200 Mg Cap PO 01/24/21 23:59 PREOP RADHA Celecoxib 200 mg 01/24/21 09:00 Celecoxib 200 Mg Cap PO BID RADHA Docusate Sodium 100 mg 01/24/21 07:22 Docusate Sodium 100 Mg Cap PO BID PRN PRN Constipation Gabapentin 300 mg 01/24/21 06:00 Gabapentin 300 Mg Cap PO 01/24/21 23:59 PREOP RADHA Gabapentin 300 mg 01/24/21 22:00 Gabapentin 300 Mg Cap PO HS RADHA Hydromorphone HCl 0.5 mg 01/24/21 07:22 Hydromorphone 2 Mg/Ml Vial IVP Q2H PRN PRN Tranexamic Acid 1,000 mg/ 60 mls @ 360 mls/hr 01/24/21 06:00 Sodium Chloride IVPB 01/24/21 23:59 PREOP RADHA Tranexamic Acid 1,000 mg/ 60 mls @ 360 mls/hr 01/24/21 06:00 Sodium Chloride IVPB 01/24/21 23:59 DIRECTED RADHA Ringer's Solution 1,000 mls @ 80 mls/hr 01/24/21 06:00 IV 02/22/21 23:59 INFUSION RADHA Cefazolin Sodium/Dextrose 1 gm in 50 mls @ 100 mls/hr 01/24/21 10:00 Ancef Duplex IVPB 01/25/21 02:29 Q8H RADHA Cefazolin Sodium/Dextrose 2 gm in 50 mls @ 100 mls/hr 01/24/21 06:00 Ancef Duplex IVPB 01/24/21 23:59 PREOP RADHA IV Miscellaneous Supplies 1 each 01/24/21 06:00 Iv Access IV 02/22/21 23:59 DIRECTED RADHA Oxycodone HCl 0 mg 01/24/21 07:22 Oxycodone 5 Mg Tab PO Q3H PRN PRN Pain Pantoprazole Sodium 40 mg 01/24/21 08:00 Pantoprazole 40 Mg Tabcr PO DAILY@0730 RADHA Polyethylene Glycol 17 gm 01/24/21 07:22 Polyethylene Glycol 3350 17 Gm Packet PO BID PRN PRN Constipation Sodium Chloride 0 ml 01/24/21 06:00 Normal Saline Flush 10 Ml Syr IV 02/22/21 23:59 PRN PRN Sodium Chloride 0 ml 01/24/21 06:00 Normal Saline 10 Ml Vial IJ 02/22/21 23:59 DIRECTED PRN Sterile Water 0 ml 01/24/21 06:00 Water,Injection,Sterile 10 Ml Vial IJ 02/22/21 23:59 DIRECTED PRN PFSH Active Problems Active Problems: Problem Status Onset Code Vaginal atrophy N95.2 Leakage of surgical anastomosis of digestive tract K91.89 Colostomy complication K94.00 Anxiety F41.9 Fallopian tube cancer, 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 Tachycardia R00.0 Left knee pain M25.562 Unilateral primary osteoarthritis, left knee M17.12 Depression F32.9 Anemia D64.9 FH: total abdominal hysterectomy and bilateral salpingo-oophorectomy Z84.2 Anisocoria H57.02 Bladder prolapse, female, acquired 10/31/15 N81.10 Cataract H26.9 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 with infracolic omentectomy, periaoric lymphadenectomy and rectosigmoid resection with colpoproctostomy. 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 +YEN titer-80 06/18; presently on Plaquenil and seeing fan blade truer Knee pain RIGHT; DJD medial tibiofemoral jt. S/P TKR Osteopenia Postmenopausal bleeding EMBX Benign. Surgical History Surgical History (Updated 01/23/21 @ 11:40 by Ryan Ybarra) Arthroscopy (~08/2007) Right WRIST Colonoscopy - MAC Extraction of cataract 04/03/16-RIGHT EYE LEFT EYE DATE? History of right knee joint replacement Replacement of total knee joint (~06/2011) Status post colostomy Status post ALEJANDRA-BSO 11/20/18. with infracolic omentectomy, periaoric lymphadenectomy and rectosigmoid resection with colpoproctostomy. Tobacco Smoking/Tobacco Use Status: Never Passive smoking exposure: Yes Second hand exposure: Yes Alcohol Alcohol Intake: current Alcohol intake frequency: a few times a week Alcohol type: wine Substance Use Substance use: Never Substance use type: does not use Vital Signs and Lab Results Vital Signs Most Recent Vital Signs in EMR: Most Recent Vital Signs Temp Pulse Resp BP Pulse Ox 36.3 C L 89 18 114/75 95 01/24/21 07:34 01/24/21 07:34 01/24/21 07:34 01/24/21 07:34 01/24/21 07:34 Lab Results Blood Type / Crossmatch: No Data to Display Complete Blood Count: White Blood Count 5.58 10^3/uL (4.4-10.8) 01/23/21 09:32 01/23/21 Red Blood Count 3.89 10^6/uL (3.93-5.22) L 01/23/21 09:32 01/23/21 Hemoglobin 12.3 g/dL (11.2-15.7) 01/23/21 09:32 01/23/21 Hematocrit 36.5 % (36.0-46.0) 01/23/21 09:32 01/23/21 Platelet Count 172 10^3/uL (130-400) 01/23/21 09:32 01/23/21 Complete Metabolic Panel: Sodium Level 139 mmol/L (136-145) 01/23/21 09:32 01/23/21 Potassium Level 4.3 mmol/L (3.5-5.1) 01/23/21 09:32 01/23/21 Chloride Level 102 mmol/L (98-107) 01/23/21 09:32 01/23/21 Carbon Dioxide Level 28.2 mmol/L (21.0-32.0) 01/23/21 09:32 01/23/21 Blood Urea Nitrogen 13 mg/dL (7-18) 01/23/21 09:32 01/23/21 Creatinine 0.9 mg/dL (0.55-1.02) 01/23/21 09:32 01/23/21 Estimated GFR/1.73 m2 >= 60.00 (mL/min/1.73m2) 01/23/21 09:32 01/23/21 Calcium Level 9.3 mg/dL (8.5-10.1) 01/23/21 09:32 01/23/21 Glucose Level 88 mg/dL (74-106) 01/23/21 09:32 01/23/21 Liver Function Panel: No Data to Display Coagulation Panel: No Data to Display Cardiac Panel: No Data to Display Arterial Blood Gas: No Data to Display Venous Blood Gas: No Data to Display Pancreas Panel: No Data to Display Thyroid Panel: No Data to Display Infectious Disease: Coronavirus (COVID-19)(PCR) Negative (Negative) 01/23/21 09:44 01/23/21 Coronavirus 2019 Source Nasal/Nares 01/23/21 09:44 01/23/21 Blood Cultures: No Data to Display Toxicology Panel: No Data to Display Imaging and Studies Imaging and Studies Echocardiogram Summary: Conclusion Left Ventricle : The left ventricle is normal size. The posterior wall thickness is normal. The septum is normal. Left ventricular systolic function is low normal. There is normal LV segmental wall motion. LVEF is 65-70%. The left ventricular diastolic function is normal. Right Ventricle : The right ventricle is normal size. The right ventricular systolic function is normal. Atria : The left atrium size is normal. The right atrium size is normal. Aortic Valve : Aortic valve is trileaflet. No aortic regurgitation is present. There is no aortic valvular stenosis. Mitral Valve : Mitral valve leaflets appear myxomatous. The mitral valve is mildly thickened. Trivial mitral regurgitation. No evidence of mitral valve stenosis. Tricuspid Valve : Tricuspid valve leaflets are thickened but open well. Mild to moderate tricuspid regurgitation. Great Vessels : IVC is normal in size and collapses >50% with inspiration. Estimated RVSP is 25-30 mmHg. There is no prior echocardiogram available for comparison. Anesthesia Assessment and Plan Anesthesia History Personal History: PONV and Other (Hallucinations) Family History: No Family History of Anesthesia Complications Exercise Tolerance Exercise Tolerance: Metabolic Equivalents>4 Pertinent Negatives Pertinent Negatives: No Symptoms of GERD, No Major Cardiovascular Symptoms or Complaints, No Major Pulmonary Symptoms or Complaints and No History of CVA/TIA Cardiac & Pulmonary Exam Cardiac Exam: Normal S1/S2 Heart Sounds Pulmonary Exam: Clear Bilateral Breath Sounds Airway Exam Known Difficult Airway: No Mallampati Class: 2 Mouth Opening: Normal (> 3cm) Thyromental Distance: Greater than 3 cm Neck Range of Motion: Full ROM Neck Circumference: Normal Teeth Condition: Normal Dentition ASA Classification ASA Score: ASA 2 Emergency Case?: No NPO Status NPO Status: NPO Clears >2 hours, Solids >8 hours Anesthesia Plan Resuscitation Status: Full Code Anesthesia Technique: Spinal Anesthesia Airway Planned: Natural Airway Pain Management: Surgeon and patient request nerve block Monitors Used: Standard Monitors
[2021-01-24] MEDS: Acetaminophen 500 MG TAB 1000 MG PO (08:03)
[2021-01-24] MEDS: Celecoxib 200 MG CAP 400 MG PO (08:03)
[2021-01-24] MEDS: Gabapentin 300 MG CAP PO (08:03)
[2021-01-24] MEDS: Lactated Ringers 1,000 ML 80 ML IV (08:22)
[2021-01-24] MEDS: ceFAZolin 2 GM/50 ML BAG IVPB (09:40)
--- NOTE | 2021-01-24 09:53 | W.ANESNERVE ---
Nerve Block Single Injection Procedure Date and Time Date Performed: 01/24/21 Procedure Start: 09:15 Location Where Procedure Performed Procedure Location: PACU Reason Performed: Postoperative Analgesia Requesting Provider: Macho Fields Timeout Performed Timeout Performed: Yes Monitoring Used ECG, Blood Pressure and SpO2 Sterility Sterility: Hand Hygiene, Surgical Cap, Surgical Mask, Sterile Gloves and Chlorhexidine Sedation Given During Procedure Sedation Given (Indicate Dose Given): Precedex IV Dose:: 8 mcg Patient Mental Status Patient Mental Status: Awake Nerve Block 1st Nerve Block: Laterality: Left Block Type: Adductor Canal Needle / Catheter Used: 100mm SonoPlex II Local Anesthetic Bolus (Indicate Dose Given): Lidocaine used for local infiltration of skin, Injected in 3-5ml increments after negative blood aspiration and Bupivacaine 0.5% Dose:: 15 ml Additives (Indicate Dose Given): None Ultrasound: Sterile probe cover and gel used Ultrasound Image Saved?: Yes Nerve Stimulator: Not Used Paresthesia: None Procedure Tolerated: No Complications and Patient tolerated well Procedure Outcome: Successful Performed By: Ayush Villa Supervised By: Mau Crawford
[2021-01-24] MEDS: Bupivacaine 0.25% Pres-Free 30 ML VIAL (09:57)
[2021-01-24] MEDS: Ketorolac 30 MG/ML VIAL (09:58)
[2021-01-24] MEDS: Normal Saline 20 ML VIAL (09:58)
--- NOTE | 2021-01-24 12:39 | W.ANESPOSTOP ---
Postoperative Evaluation Date, Time and Location Date Performed: 01/24/21 Time Performed: 12:40 Patient Location: PACU Vital Signs Most Recent Imported Vital Signs: Most Recent Vital Signs Temp Pulse Resp BP Pulse Ox 36.6 C 76 12 106/57 L 97 01/24/21 12:23 01/24/21 12:23 01/24/21 12:23 01/24/21 12:23 01/24/21 12:23 Pain Score Most Recent Pain Score: Most Recent Pain Score Pain Level 0 01/24/21 12:23 Assessment Mental Status: Awake (Alert & Oriented to Patient Baseline) Airway and Respiratory Function: Patent airway with normal (patient baseline) respiratory exam Cardiovascular Function: Hemodynamically Stable Hydration Status: Adequately Hydrated Nausea & Vomiting: No Nausea or Vomiting Pain: Pt. Denies Any Pain Peripheral Nerve Block: Regional nerve block not resolved at time of post operative discharge
[2021-01-24] MEDS: oxyCODONE 5 MG TAB PO (13:13)
--- NOTE | 2021-01-24 13:55 | IN_ITS ---
Date of service: 01/24/21 Time of Service: 13:55 PT Notes Visit Reasons: Left knee DJD Physical Therapy Day Surgery Initial Evaluation Date: 01/24/2021 Referring Doctor: DARON Fowler PT Orders: PT CONSULT: Status post Ortho surgery Precautions: WBAT on the left LE with AD. Patient Profile/Admitting Diagnosis: Keiko is a 76-year-old female with degenerative joint disease of the left knee and is status post left total knee arthroplasty on postoperative day 0. PMHX: Medical History (Updated 06/09/20 @ 12:08 by Valentín Bob RN) 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 with infracolic omentectomy, periaoric lymphadenectomy and rectosigmoid resection with colpoproctostomy. 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 +YEN titer-80 06/18; prese ntly on Plaquenil and seeing system planning engineer Knee pain RIGHT; DJD medial tibiofemoral jt. S/P TKR Osteopenia Postmenopausal bleeding EMBX Benign. Surgical History (Updated 01/19/21 @ 13:25 by Samantha Chi) Arthroscopy (~08/2007) Right WRIST Colonoscopy - MAC Extraction of cataract 04/03/16-RIGHT EYE LEFT EYE DATE? Replacement of total knee joint (~06/2011) Status post colostomy Status post ALEJANDRA-BSO 11/20/18. with infracolic omentectomy, periaoric lymphadenectomy and rectosigmoid resection with colpoproctostomy. Social History/Home Situation: Has a ramp to enter her house. Has 14 steps to the second floor of the house with rail on the left side going up but didn't stay on the floor as she recovers. Equipment Owned/DME: [employer] Subjective: Agreeable to PT consult. States that with her first knee she had an awful nausea that limited her performance during assessment. Surprised that she does not have dizziness nor nausea this time. Did report some discomfort in the L knee with walking initially but felt better after awhile. Objective: General Observation: YOANA wraps to L knee. TEDS on the R leg. Alert and oriented x 4 Mental Status: Pain: 3?4/10 in the L knee with initial weight bearing ROM: Right Lower Extremity: Hip flexion WFL. Hip abduction WFL. Knee flexion WFL. Ankle dorsiflexion WFL. Ankle plantarflexion WFL. Left Lower Extremity: Hip flexion WFL. Hip abduction WFL. Knee flexion 0 to 100 degrees. Knee extension 0 degrees. SLR done x 10 reps to about 45 degrees of hip flexion with L knee straight without any extension lag seen. Ankle dorsiflexion WFL. Ankle plantarflexion WFL. Strength: Right Lower Extremity: Hip flexors 5/5. Hip abductors 5/5. Knee flexors 5/5. Knee extensors 5/5. Ankle dorsiflexors 5/5. Ankle plantarflexors 5/5. Left Lower Extremity:Hip flexors 4/5. Hip abductors 4/5. Knee flexors 3-/5. Knee extensors 4/5. Good quad activation observed. Ankle dorsiflexors 5/5. Ankle plantarflexors 5/5. Sensation: Intact as to pain and light pressure pressure in bilateral lower extremities Bed Mobility/Transfers: Supine to sit standby assist Sit to stand contact-guard assist Stand to sit standby assist Bed to chair contact-guard assist Gait: Patient was able to tolerate level surface ambulation of 100 feet using front wheeled walker with report of 3?4/10 pain in the left knee with weight bearing. Stairs: Up and down 6 x 4 inch steps and 4 x 6 inch steps while holding onto 1 rail requiring only stand by assist. No increase in pain received. Balance: Static Sitting: Normal Dynamic Sitting: Normal Static Standing: Fair Dynamic Standing: Fair Special Tests: Mobility Limitations Standardized Measure [facility] AM-PAC 6 clicks Basic Mobility Inpatient Short Form: Raw Score: 23 CMS Score: 11% deficit Informed Consent/Education: Patient was instructed in purpose of PT consult. Packet containing L TKA exercise protocol has been given to patient. Education and training on initial set of exercises that can be done at home have been completed with patient. Assessment: Keiko requires the use of a FWW to maximize indpednence and reduce fall risk at home. Patient presents with clinical signs and symptoms consistent with current/admitting diagnoses that have resulted to mobility limitations, gait instability, generalized weakness, and impairment of motor control as demonstrat ed by the following impairment level findings: 1. Decreased strength to left knee major muscle groups 2. Impaired standing balance 3. Limitation of joint range of motion in left knee flexion Impairments are contributing to the following functional limitations: 1. Inability to safely ambulate without assistive device 2. Increase completion time for mobility ADL performance 3. Increased fall risk Patient is assessed as a [id number] moderate complexity based on the following: History: 76-year-old female with impairment level findings, functional limitations, and past medical history as indicated above Examination: Demonstrable impairment in strength, balance, and mobility level with underlying impairments and functional limitations as documented above Presentation: Evolving Decision Makin moderate complexity Goals: N/A. PT evaluation and 1-2 treatment sessions only for functional mobility training using recommended AD and for HEP instruction. Plan of Care/Treatment Plan: N/A. PT evaluation and 1-2 treatment session only for functional mobility training using recommended AD and for HEP instruction. DISCHARGE RECOMMENDATIONS: Home when medically cleared by hospitalist. OP PT services to facilitate return to community ambulation without an assistive device. TREATMENT CODE/TIME: 90982 x 25 minutes, [id number] x 24 minutes beginning at 13:55 PM. Thank you for the opportunity to participate in the care of this patient. Kourtney Flynn PT, DPT, CLT [facility] [place], [place]
--- NOTE | 2021-01-24 14:18 | W.PM.OP ---
Date of service: 01/24/21 Time of Service: 11:28 Operative Note Operative Note DATE OF PROCEDURE: 01/24/21 PRE-OP DIAGNOSIS: Left Knee Osteoarthritis POST-OP DIAGNOSIS: same PROCEDURE: Left Total Knee Replacement SURGEON: Macho Fields AUDIOLOGY ASSISTANT: Samantha Chi ANESTHESIA TYPE: Spinal Refer to Anesthesia Record ESTIMATED BLOOD LOSS: 150 PATHOLOGY: none sent TOURNIQUET TIME: 0 COMPLICATIONS: Other (The femoral component would not obtain satisfactory fit, so a cemented femur was used) Patient was transported to: PACU Patient's condition: stable Implants: 1. Depuy Attune Cemented Cruciate Retaining Femoral Component, Size 6 2. Depuy Attune Cementless Rotating Platform Tibial Component, Size 5 3. Depuy Attune 6x7mm CR/RP Poly 4. Depuy Attune Patellar Component, Size 38 Indications: I have seen Keiko in clinic for symptoms of knee arthritis, confirmed with radiographic findings. She has exhausted nonoperative methods and was having significant limitations in daily function and desired better function and less pain. I discussed the technical details of a knee replacement. I explained the risks of the procedure to include, but not limited to, bleeding, infection, pain, stiffness, fracture, damage to nerves and vessels, damage to muscles and tendons, loosening, need for repeat procedure, blood clot and cardiopulmonary demise. Despite these risks, Keiko elected to proceed. Findings: There was significant signs of arthritis throughout the knee. The bone quality appeared quite good for her age so I proceeded with a cementless knee replacement. HOwever, toward the end of the case the cancellous bone was unable to maintain its integrity with impaction of the femur and could not hold it in place, so a cemented femur was placed. Procedure Description: Keiko was greeted in the preoperative holding area where the correct side was identified and marked. The consent was reviewed with the patient and signed. The history and physical was updated. All questions were answered. Preoperative medications were administered: Acetaminophen 1000mg, Celebrex 400mg, and Gabapentin 300mg. An adductor canal block was then administered by the anesthesia team in the PACU. Keiko was taken back to the operating room. A spinal anesthestic was then administered. The patient was placed into the supine position on the operating room table. A nonsterile tourniquet was placed high onto the leg but only used for cementing. Posts were placed for positioning during the procedure. All bony prominences were well padded. Prophylactic antibiotics in the form of Cefazolin were administered. 1g of Tranxemic Acid was given intravenously within 30 minutes of incision. The left leg was then prepped with Chloraprep and draped in a standard fashion with impervious stockinette. A second prep with Chloraprep was performed prior to application of Iodine impregnated skin protection. A timeout to confirm correct identity, side and site, procedure, allergies, anesthesia, and medical concerns was performed. With the knee in some flexion, a midline incision was made overlying the knee. Full thickness skin flaps were raised once the extensor mechanism was encountered. These were raised medially and laterally. Any bleeding was controlled with electrocautery. Once the extensor mechanism was fully exposed, a medial parapatellar arthrotomy was performed in a flexed position. All bleeding from the arthrotomy and the geniculate arteries was coagulated. A medial subperiosteal peel was performed with electrocautery to the midcoronal plane. The fat pad was removed while keeping the patellar tendon protected. The anterior distal femur synovium was removed for later visualization. The ACL and PCL were resected and the anterior horn of the lateral meniscus was transected. The knee was then flexed with the patella everted. Large osteophytes from the tibia were removed. Large osteophytes from the femur were removed. Using a step drill, and based on preoperative templating, the femoral canal was entered. This was done with a step drill without any difficulty. The intramedullary distal femoral cut guide was inserted, set to a 5 degree valgus cut and 9mm cut thickness. The distal femoral cut guide was then held in position and pinned. With the soft tissues protected, the distal cut was performed. This was passed over a few times to ensure a planar cut. I then turned attention to the tibia. The extramedullary guide was placed onto the leg. The distal aspect was slid medial to adjust for position of center of ankle and stay in line with shaft of the tibia. Approximately 3-5 degrees of posterior slope was kept in the proximal cutting guide. The center of the guide was aligned with the PCL. The stylus was used to assess cut thickness. The medial side, most involved side, was set for a 1mm cut posteromedially where it sloped off and there was notable deformity. This was then held in position and pinned into place with 2 additional pins and a cross pin for stability. The medial and lateral collateral ligaments were protected and the cut was performed. With this completed, it was assessed and noted to be of appropriate dimensions. The guide was removed. A spacer block was inserted and the knee was brought into extension. The 7mm spacer block provided full extension, without hyperextension and with stability of both the medial and lateral collateral ligaments was assessed. The pins from the femur and the tibia were then removed. The distal femur was then sized. The anterior stylus was placed onto the lateral ridge of the anterior femur. This indicated a size 6 femur. The external rotation of the guide was adjusted to 3 degrees to match the epicondylar axis, perpendicular to [place]?s line. The 4-in-1 cutting guide was the placed. The posterior medial femur cut was evaluated and appeared of good thickness. The spacer block was inserted underneath the cutting guide and stability was confirmed in 90 degrees of flexion. This was quite tight so I anteriorized the femur 1.5mm. An piotr wing was used to confirm appropriate position of the anterior cut to avoid notching. This cutting guide was ensured to be flush on the cut surface and then pinned into place with headed pins. While protecting the soft tissues, quad tendon, and collateral ligaments, the anterior and posterior cuts were performed with a saw. The central two pins were removed and the posterior and anterior chamfers were cut next. The notch-cutting guide was placed. This was pinned to lateralize the femoral component as much as possible while keeping it flush on the cut surface. This was then pinned into position. A reciprocating saw was used to make the notch cut. A rasp smoothed the cut surfaces. The medial and lateral menisci were removed. A trial femoral component was then inserted, impacted down to the cut surfaces, and the lug holes were drilled. A provisional trial tibial component was placed and the knee was brought through range of motion. There was noted to be excellent extension and flexion. There was no significant instability. The patella was tracking without thumbs. A size 7mm polyethylene component provided the best range of motion and stability with less than 2mm gapping with medial and lateral stress and full extension without significant hyperextension. The tibial cut surface was fully exposed. The tibia was then sized as a 5. The tibia had been previously marked during trialing to correspond to the center of the tibial component to help with rotation. The trial was aligned to this jil, approximately rotated to the medial 1/3rd of the tibial tubercle. The trial was pinned into place. The tibia was prepared with a reamer and a keel punch and lug holes. The knee was then brought into extension and the patella was measured as 26mm. Using the patellar clamp and cut guide, this was resected to a flat surface with at least 13mm of thickness remaining. The size 38 patella fit the best. This was oriented and then clamped into position. The lugs were drilled. The trial components were removed. The final components were opened on the back table. The periosteal and capsular tissues, especially posteriorly, around the knee were then systematically injected with a periarticular cocktail consisting of 50cc 0.25% Marcaine, 30mg Ketorolac, 20cc of Exparal and 50cc of injectable saline. The knee was thoroughly irrigated with a pulse lavage and dried. Irrisept was also used to irrigate the tissues. On the back table, with the implants opened, the cement was mixed. One batch of high viscosity cement was prepared with vacuum assistance. After the cement was ready a small amount was placed on the cut surface of the patella and the patellar button was clamped into position and held. While the cement was hardening, the cementless knee components were placed. Starting with the tibial component, the tibia was subluxed anteriorly and the lug holes of the component were lined up. The tibia was then impacted with an impactor and mallet until the tibial component was in contact with the tibia. The lateral aspect of the tibia settled into the bone by about a millimeter such that the cementless component of the knee was visible. This was tested and it was secure unable to be removed and fitting appropriately elsewhere including posteriorly. The final polyethylene component was inserted. Then, the femoral component was inserted. The lug holes were aligned and the component was impacted into position. While it aligned appropriately, femoral component would not obtain secure fixation and was able to be removed by hand. There is no notable defect in the bone except that the bone was compressing some. Therefore, I had to convert to a cemented femoral component. On the back table another single batch of high viscosity cement was mixed under vacuum assistance. After that was completed and the bone was thoroughly cleaned and dried, the cement was manually impacted into the bony surface of the distal femur. A size 6 attune cemented femoral component was then inserted in position. Excess cement was removed. The knee was brought into terminal extension and kept there for the duration of the curing process of the cement. The knee was irrigated with Irrisept chlorhexadine solution. This was allowed to sit in the knee for 3 minutes. Once the cement had cured, excess cement was removed and the knee was taken through range of motion. The patella was tracking with a no-thumbs technique. The capsule was then reapproximated with a No. 1 Vicryl at multiple locations. The capsule was finally closed with a No. 2 Stratafix, barbed suture. The second dosing of 1g TXA was started. Deep tissues were then reapproximated with 0 Vicryl and 2-0 Vicryl. The skin was closed with a running 3-0 Monocryl in a subcuticular fashion. This was reinforced with skin glue. A Mepilex silver dressing was applied along with a [id number] YOANA wrap. A CryoCuff was applied. Keiko was transferred to the hospital bed without difficulty an suffering no apparent complication. Keiko has a good prognosis. Physical therapy will start today and without restrictions, weight-bearing as tolerated. Aspirin 81mg BID will be used for DVT prophylaxis.
== END 2021-01-24 15:32 | disposition home or self-care (01) ==
PROVIDERS: PCP Family Medicine; Visit Provider Student in an Organized Health Care Education/Training Program
PROC: (CPT 27447; principal; 2021-01-24 09:15)
DX: M17.12 Unilateral primary osteoarthritis, left knee (principal); G89.18 Other acute postprocedural pain
CPT/HCPCS: 27447; C1776; 97162; 97530; J0690; J1100; J1885; J2001; J2405; J2704

== ENCOUNTER 2021-02-01 10:36 | Emergency (ER) | payer MEDICARE, BC, SELFPAY ==
[2021-02-01] VITALS (11 sets, daily range): BP systolic 131; BP diastolic 68; PULSE 77–105; RESP 7–21; TEMP 36.8; O2SAT 98–99
[2021-02-01 11:15] LABS: Abs Immature Grans 0.05 10^3/uL (0.0-0.06); Absolute Basophil Count 0.03 10^3/uL (0.0-0.2); Absolute Eosinophil Count 0.23 10^3/uL (0.0-0.7); Absolute Lymphocyte Count 1.56 10^3/uL (1.2-3.4); Absolute Monocyte Count 0.52 10^3/uL (0.1-0.8); Absolute Neutrophil Count 4.94 10^3/uL (1.2-6.7); Basophils % 0.4; Eosinophils % 3.1; HCT 29.1 % (36.0-46.0); HGB 9.8 g/dL (11.2-15.7); Immature Grans % 0.7; Lymphocytes % 21.3; MCH 32.1 pg (27.0-33.0); MCHC 33.7 % (32.0-36.0); MCV 95.4 fL (80-95); MPV 8.5 fL (8.0-11.0); Monocytes % 7.1; Neutrophils % 67.4; Nucleated RBC 0 %; Platelet Count 265 10^3/uL (130-400); RBC 3.05 10^6/uL (3.93-5.22); RDW 11.9 % (11.7-14.6); RDW-SD 41.6 fL; WBC 7.33 10^3/uL (4.4-10.8)
--- NOTE | 2021-02-01 11:26 | ED.GENADUL_ITS ---
Discharge Plan Disposition Patient Disposition: HOME Condition: Stable Discharge Details Clinical Impression: Anemia Primary Care Provider: Jovanna Hawkins ED Provider: Woodrow Castaneda Home Meds and New Rx's Prescriptions: Continued calcium carbonate-vitamin D3 [Caltrate with Vitamin D3] 600 mg(1,500mg) -800 unit tablet 1 tab PO DAILY RF: 0 hydroxychloroquine 200 mg tablet 200 mg PO DAILY RF: 0 lorazepam 0.5 mg tablet 0.5 mg PO BID PRN (Reason: anxiety) Qty: 60 RF: 2 cetirizine 10 MG tablet 10 mg PO DAILY Qty: 90 RF: 4 aspirin 81 mg tablet,delayed release (DR/EC) 81 mg PO BID 30 Days Qty: 60 RF: 0 acetaminophen 500 mg tablet 500 mg PO Q6H PRN (Reason: pain) Qty: 60 RF: 2 pantoprazole 40 mg tablet,delayed release (DR/EC) 40 mg PO DAILY Qty: 30 RF: 0 gabapentin 300 mg capsule 300 mg PO QHS Qty: 14 RF: 0 acetaminophen [Tylenol] 325 mg Capsule 650 mg PO Q6H PRN PRNRF: 0 Discontinued celecoxib [Celebrex] 200 mg capsule 200 mg PO BID Qty: 30 RF: 0 Discharge Instructions Instructions: Anemia (ED) Additional Instructions: At this time your stool is negative for microscopic blood, and your rectal exam does not reveal any blood as well. There was a small wound to your superior buttocks that I do recommend keeping clean and dry, washing carefully, and applying antibiotic ointment. This is likely to be dried crusted blood you saw in your underwear. It does appear as though you have chronic anemia, have taken iron in the past, and did take iron recently for 4 days. Your vital signs here today are unremarkable. I would discuss starting your iron again with your primary care provider. I recommend that you discontinue taking the Celebrex as it sounds as though your pain is very well controlled in your left knee and I would begin taking the pantoprazole that you were prescribed after your surgery which you have not been taking. Please watch for new or worsening symptoms and return to the ER for any concerns. I recommend that you contact your primary care provider to discuss your ER visit need for outpatient reevaluation. I will also give you the name and number of our surgical team as outpatient for endoscopy and/or colonoscopy may be indicated for further evaluation of your symptoms Referrals: Eusebia Verdugo MD [ [facility] STAFF PHYSICIAN] - Discharge Data Discharge Date/Time-TO BE ENTERED AT DEPARTURE: 02/01/21 12:52 Medical Decision Making This is a 76-year-old female, past medical history that does include anemia, recent knee surgery, presenting to the ER for concern of dark stools into her colostomy bag and seeing dried blood on her underwear. She is not anticoagulated. She did recently take 4-day of iron, has been placed on aspirin and Celebrex after her surgery, and has not been taking her pantoprazole. Clinically she appears well, nontoxic, hemodynamically stable. Rectal exam is unremarkable, heme negative. She does have a small shallow lesion to her right buttocks, no evidence of cellulitis, likely where the dried blood came from. Will obtain laboratory values to assess for potential anemia, and will also test her stool for potential blood. Patient is comfortable this plan and has no additional questions or concerns. Rectal exam as above heme-negative Stool sample from colostomy bag also heme negative Laboratory values are unremarkable for any obvious emergent process, white blood cell count of 7.33. Hemoglobin of 9.8 and hematocrit of 29.1. When comparing her H&H to values back from 2019, this is really not far from her baseline and I would expect some degree of blood loss from her recent surgery. Platelet count 265. INR 1.0, sodium 133, electrolytes otherwise unremarkable. Creatinine 1.1 with a GFR of 48.55. Laboratory values reveal mild anemia, appears near her baseline when compared to previous blood draws. Clinically she appears well, nontoxic, both rectal exam and stool are heme-negative. No evidence of bleeding. We discussed that getting back on iron on a regular basis is likely a good idea for your chronic anemia, I would discontinue the Celebrex as your pain is adequately controlled, and I do recommend taking the pantoprazole as was directed after your surgery. Please watch for new or worsening symptoms and return to the ER for any concerns. I will give you the name and number of our local surgical team as endoscopy and/or colonoscopy could be recommended for further evaluation of your concern of bleeding. I do recommend reaching out to their office to discuss your symptoms. Otherwise please contact your primary care provider tomorrow to discuss your ER visit, symptoms, need for outpatient reevaluation. Standard discharge and return precautions provided This documentation was generated using Shipeyation system, please disregard any oddities of phrase or misspellings. Medical Records Medical records reviewed: Yes I reviewed the patient's medical records. Lab Data Lab results reviewed: Yes I reviewed the patient's lab results. Labs: Laboratory Tests Range/Units 02/01/21 02/01/21 02/01/21 11:04 11:04 11:04 WBC (4.4-10.8) 10^3/uL 7.33 RBC (3.93-5.22) 10^6/uL 3.05 L Hgb (11.2-15.7) g/dL 9.8 L Hct (36.0-46.0) % 29.1 L MCV (80-95) fL 95.4 H MCH (27.0-33.0) pg 32.1 MCHC (32.0-36.0) % 33.7 RDW (11.7-14.6) % 11.9 Plt Count (130-400) 10^3/uL 265 MPV (8.0-11.0) fL 8.5 Immature Gran % 0.7 Neutrophils % 67.4 Lymphocytes % 21.3 Monocytes % 7.1 Eosinophils % 3.1 Basophils % 0.4 Nucleated RBC % % 0 Absolute Neutrophils (1.2-6.7) 10^3/uL 4.94 Absolute Lymphocytes (1.2-3.4) 10^3/uL 1.56 Absolute Monocytes (0.1-0.8) 10^3/uL 0.52 Absolute Eosinophils (0.0-0.7) 10^3/uL 0.23 Absolute Basophils (0.0-0.2) 10^3/uL 0.03 PT (9.3-11.0) sec 10.5 INR (0.9-1.1) 1.0 Sodium (136-145) mmol/L 133 L Potassium (3.5-5.1) mmol/L 4.2 Chloride (98-107) mmol/L 98 Carbon Dioxide (21.0-32.0) mmol/L 27.1 Anion Gap (3-11) mmol/L 7.9 BUN (7-18) mg/dL 16 Creatinine (0.55-1.02) mg/dL 1.1 H Estimated GFR/1.73 m2 (mL/min/1.73m2) 48.55 Glucose (74-106) mg/dL 99 Calcium (8.5-10.1) mg/dL 9.5 Total Bilirubin (0.2-1.0) mg/dL 0.6 AST (15-37) U/L 27 ALT (14-59) U/L 29 Alkaline Phosphatase (46-116) U/L 114 Total Protein (6.4-8.2) g/dL 7.2 Albumin (3.4-5.0) g/dL 3.5 Lipase (73-393) U/L 79 HPI General Mode of arrival: ambulatory . Date/Time Provider Initiated Documentation: 02/01/21 10:43 . Limitations to Documentation: no limitations . Information obtained by: patient . 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 Since the surgery she has been taking Celebrex and aspirin. Patient states that she used to be on iron for anemia but has not been on iron for many years except she did take iron 2 days before the surgery and that a couple days after the surgery. Patient states that she was given omeprazole for GERD after the surgery but because she has had no GERD-like symptoms is not taking the medication. Patient denies any bright red blood coming from her stoma. Patient states that she did notice a small amount dried blood on the backside of her underwear which she felt as though could have come from her rectum. Patient subsequently wipes the area with white tissue paper and did not have any blood on the tissue paper. She denies generalized weakness, feeling faint or dizzy, headache, neck pain, chest pain, shortness of breath, abdominal pain, nausea, vomiting, dysuria, hematuria, vaginal bleeding or discharge. She denies any numbness, tingling, weakness in her extremities. She reports that her knee surgery has gone very well and is healing nicely. She denies any moris rrhea or constipation. Related Data Home Medications Medication Instructions Recorded Confirmed cetirizine 10 mg PO DAILY #90 tab-cap 12/16/12 02/01/21 acetaminophen [Tylenol] 650 mg PO Q6H PRN PRN 12/01/18 02/01/21 calcium carbonate-vitamin D3 600 1 tab PO DAILY tab 09/29/19 01/24/21 mg (1,500 mg)-800 unit tablet hydroxychloroquine 200 mg tablet 200 mg PO DAILY tab 12/05/20 02/01/21 lorazepam 0.5 mg tablet 0.5 mg PO BID PRN #60 tab 12/05/20 02/01/21 acetaminophen 500 mg PO Q6H PRN #60 tab 01/24/21 aspirin 81 mg PO BID 30 Days #60 tab 01/24/21 02/01/21 gabapentin 300 mg PO QHS #14 cap 01/24/21 02/01/21 pantoprazole 40 mg PO DAILY #30 tab 01/24/21 02/01/21 Previous Rx's Medication Instructions Recorded lorazepam 0.5 mg tablet 0.5 mg PO BID PRN #60 tab 12/05/20 acetaminophen 500 mg PO Q6H PRN #60 tab 01/24/21 aspirin 81 mg PO BID 30 Days #60 tab 01/24/21 gabapentin 300 mg PO QHS #14 cap 01/24/21 pantoprazole 40 mg PO DAILY #30 tab 01/24/21 Allergies Allergy/AdvReac Type Severity Reaction Status Date / Time No Known Allergies Allergy Unverified 01/24/21 07:51 General Stated Complaint: GI Bleed LORI: 3 Review of Systems Constitutional Constitutional: Denies fever(s), Denies headache(s) and Denies weakness Eyes Eyes: Denies change in vision ENT Ears, Nose, Mouth, and Throat: Denies headache(s) Cardiovascular Cardiovascular: Denies chest pain and Denies dyspnea Respiratory Respiratory: Denies cough and Denies dyspnea Gastrointestinal Gastrointestinal: Denies abdominal pain, Denies nausea, Denies vomiting and Reports other (Dark stools, blood in underwear) Genitourinary Genitourinary: Denies abnormal vaginal bleeding and Denies dysuria Musculoskeletal Musculoskeletal: Denies back pain, Denies numbness and Denies tingling Integumentary/Breasts Skin/Breast: Denies erythema and Denies rash Neurologic Neurologic: Denies headache(s), Denies numbness, Denies tingling and Denies weakness Endocrine Endocrine: Denies fatigue Hematologic/Lymphatic Hematologic/Lymphatic: Denies easy bleeding and Denies easy bruising [facility] Medical History 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 with infracolic omentectomy, periaoric lymphadenectomy and rectosigmoid resection with colpoproctostomy. 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 +YEN titer-80 06/18; p resently on Plaquenil and seeing wet process technician Knee pain RIGHT; DJD medial tibiofemoral jt. S/P TKR Osteopenia Postmenopausal bleeding EMBX Benign. Surgical History Arthroscopy (~08/2007) Right WRIST Colonoscopy - MAC Extraction of cataract 04/03/16-RIGHT EYE LEFT EYE DATE? History of right knee joint replacement Replacement of total knee joint (~06/2011) Status post colostomy Status post ALEJANDRA-BSO 11/20/18. with infracolic omentectomy, periaoric lymphadenectomy and rectosigmoid resection with colpoproctostomy. Family History Mother , 88 Essential hypertension OA (osteoarthritis) Parkinson disease Father , 90 Essential hypertension Heart disease CABG Stroke Sister Essential hypertension Arthritis Sister Arthritis Breast cancer Brother Essential hypertension Arthritis Maternal Grandfather , 80+ No problems noted. Paternal Grandfather , 84 No problems noted. Maternal Grandmother , 80+ No problems noted. Son No problems noted. Daughter No problems noted. Social History Smoking/Tobacco Use Status: Never Second Hand Exposure: Yes Smoking risk assessment performed?: Yes Alcohol Intake: current Alcohol Intake frequency: a few times a week Alcohol type: wine Drug use: Never Substance use type: does not use Caregiver/Support person: No Household members: spouse Housing: house Communication Needs: None Do you need help understanding health information?: Rarely Pets and animals: No Do you think of yourself as: straight/heterosexual Current gender identity: male What is your relationship status?: How often do you talk on the phone with friends or family?: three or more times per week How often do you get together with friends or relatives?: never How often do you attend sikh or temple services?: 4 or more times per year Do you belong to any clubs or organized social groups?: yes Panel score (0-1 are the most socially isolated patients): 4 What type of physical activity do you participate in: other Details: Strong Living Frequency: 1-2 times per week Marleny/Gnosticist: Pentecostal Special marleny needs: No Seatbelt use: always Helmet use: No Drive intox or ride w/intox regional owner operator truck driver: No Do you feel safe at home: Yes Do you feel safe in your relationship?: Yes Female Reproductive History Menstrual Menopause type: natural Exam Const General: cooperative, healthy appearing, comfortable and no acute distress Orientation: alert, awake and oriented x3 HENMT Head: normal to inspection, normocephalic and atraumatic Face and sinus: normal facial exam Mouth: moist mucous membranes Eyes General: appearance normal, both eyes and all related structures Conjunctivae: conjunctivae normal Neck Neck: normal visual inspection, full ROM, trachea midline and supple Resp Effort & Inspection: normal respiratory effort and able to speak in complete sentences Auscultation: clear to auscultation bilaterally Cardio Rate: regular rate Rhythm: regular rhythm GI Palpation: soft, not firm, no guarding, no pulsatile masses and nontender Auscultation: normal bowel sounds Rectal Exam - female: normal sphincter tone and heme negative stool Other: Patient with colostomy which is nontender, stoma appears normal-well. There is dark stool in the colostomy bag but does not appear to be tarry, black, and there is no bright red blood. Upon the superior aspect of the right gluteal cleft there is a 0.5 cm circular shallow wound. No erythema, warmth, drainage. There is minimal discomfort to palpation no signs of secondary cellulitis or abscess. No induration or fluctuance Back/Spine/Pelvis Back: no CVA tenderness and No back tenderness Skin General skin exam: no rashes or lesions noted Neuro General: patient alert, patient awake, patient oriented x3, moves all extremities and no focal motor deficits Cognition: normal cognition Speech: speech normal Gait: normal gait Motor: muscle tone normal throughout Sensory Exam: no sensory deficits noted Extrem General: normal to inspection, full ROM and capillary refill normal Psych Appearance: grossly normal Mental Status: mental status grossly normal Course Vital Signs Vital signs: Vital Signs Temperature 36.8 C 02/01/21 10:38 Pulse 97 H 02/01/21 10:38 Respiratory Rate 18 02/01/21 10:38 Blood Pressure 131/68 02/01/21 10:38 Pulse Oximetry 99 02/01/21 10:38 Temperature 36.8 C 02/01/21 10:38 Temperature Source Temporal Artery Scan 02/01/21 10:38 Pulse 97 H 02/01/21 10:38 Respiratory Rate 18 02/01/21 10:38 Respiratory Effort 02/01/21 10:44 Blood Pressure 131/68 02/01/21 10:38 Blood Pressure Position Sitting 02/01/21 10:38 Pulse Oximetry 99 02/01/21 10:38 Oxygen Delivery Method Room Air 02/01/21 10:38 Oxygen Flow Rate 0 02/01/21 10:38 Pain Level 3 02/01/21 10:38 Comment 02/01/21 10:38 Lab/Test Results Lab/Test Results: Laboratory Tests Range/Units 02/01/21 11:04 WBC (4.4-10.8) 10^3/uL 7.33 RBC (3.93-5.22) 10^6/uL 3.05 L Hgb (11.2-15.7) g/dL 9.8 L Hct (36.0-46.0) % 29.1 L MCV (80-95) fL 95.4 H MCH (27.0-33.0) pg 32.1 MCHC (32.0-36.0) % 33.7 RDW (11.7-14.6) % 11.9 Plt Count (130-400) 10^3/uL 265 MPV (8.0-11.0) fL 8.5 Immature Gran % 0.7 Neutrophils % 67.4 Lymphocytes % 21.3 Monocytes % 7.1 Eosinophils % 3.1 Basophils % 0.4 Nucleated RBC % % 0 Absolute Neutrophils (1.2-6.7) 10^3/uL 4.94 Absolute Lymphocytes (1.2-3.4) 10^3/uL 1.56 Absolute Monocytes (0.1-0.8) 10^3/uL 0.52 Absolute Eosinophils (0.0-0.7) 10^3/uL 0.23 Absolute Basophils (0.0-0.2) 10^3/uL 0.03 PAWSS Have you Been Recently Intoxicated or Drunk Within the Last 30 days?: No Have you Ever Experienced Previous Episodes of Alcohol Withdrawal?: No Have you ever Experienced Withdrawal Seizures?: No Have you ever Experienced Delirium Tremens(DT)s?: No Have you ever undergone Alcohol Rehabilitation Treatment (i.e, inpt ot outpatient treatment programs)?: No Have you ever Experienced Blackouts?: No Have you ever Combined Alcohol with other Downers within the last 90 days?: No Have you ever Combined Alcohol with any other Substance of Abuse during the last 90 days?: No Positive Blood Alcohol level on Presentation? [PCS.BAL]: No Evidence of Increased Autonomic Activity (i.e. HR>120, tremor, sweating, agitation, nausea)?: No Result: 0
[2021-02-01 11:30] LABS: ALT 29 U/L (14-59); AST 27 U/L (15-37); Albumin 3.5 g/dL (3.4-5.0); Alkaline Phosphatase 114 U/L (46-116); Anion Gap 7.9 mmol/L (3-11); BUN 16 mg/dL (7-18); Bilirubin, Total 0.6 mg/dL (0.2-1.0); CO2 27.1 mmol/L (21.0-32.0); CREATININE 1.1 mg/dL (0.55-1.02); Calcium 9.5 mg/dL (8.5-10.1); Chloride 98 mmol/L (98-107); Estimated GFR 48.55 (mL/min/1.73m2); Glucose 99 mg/dL (74-106); Lipase 79 U/L (73-393); Potassium 4.2 mmol/L (3.5-5.1); Sodium 133 mmol/L (136-145); Total Protein 7.2 g/dL (6.4-8.2)
[2021-02-01 11:55] LABS: Prothrombin Time 10.5 sec (9.3-11.0)
== END 2021-02-01 12:52 | disposition home or self-care (01) ==
PROVIDERS: Emergency Provider Physician Assistant; PCP Family Medicine
DX: D53.9 Nutritional anemia, unspecified (principal); R19.5 Other fecal abnormalities; T45.4X5A Adverse effect of iron and its compounds, initial encounter; S31.809A Unspecified open wound of unspecified buttock, initial encounter; X58.XXXA Exposure to other specified factors, initial encounter
CPT/HCPCS: 36415; 80053; 83690; 99284; 85025; 85610; 99283

== ENCOUNTER 2021-02-06 09:47 | Outpatient (CLI) | payer MEDICARE, BC, SELFPAY ==
--- NOTE | 2021-02-06 09:30 | DI.RAD_ITS ---
Exam(s) XR KNEE LT 1V EXAM: XR KNEE LT 1V CLINICAL HISTORY: 1ST POST OP L TKA. TECHNIQUE: 2D digital imaging was performed. COMPARISON: CR XR KNEE LT 3V AP,LAT,ASHLY from 09/29/2019 FINDINGS: Single lateral view reveals satisfactory position alignment of the components of the recently placed prosthesis. No fracture or loosening evident. IMPRESSION: DATA REPOSITORY: RADIATION DOSE DELIVERED:
--- NOTE | 2021-02-06 09:30 | DI.RAD_ITS ---
Exam(s) XR STANDING ALIGNMENT EXAM: XR STANDING ALIGNMENT CLINICAL HISTORY: 1ST POST OP L TKA. TECHNIQUE: 2D digital imaging was performed. COMPARISON: CR XR STANDING ALIGNMENT from 12/08/2020 CR XR KNEE LT 1V from 02/06/2021 CR XR KNEE LT 1V from 02/06/2021 FINDINGS: There has been interval placement of a left knee prosthesis. Both knee prostheses appear to be in sa tisfactory position and alignment on this study. However, there is an area of lucency around the lat eral aspect of the femoral component of the right knee prosthesis, possibly significant as this has i ncreased from the prior study. Hips appear unremarkable. Ankles unremarkable. IMPRESSION: Subtle area of lucency around the femoral component of the right knee prosthesis, just above its late ral aspect, more so than previous. May indicate an element of loosening. More recently placed left knee prosthesis appears unremarkable. DATA REPOSITORY: RADIATION DOSE DELIVERED:
== END 2021-02-06 09:48 | disposition home or self-care (01) ==
LOC: DIORS 09:48
PROVIDERS: PCP Family Medicine; Referring Provider Family Medicine; Visit Provider Student in an Organized Health Care Education/Training Program
DX: Z96.652 Presence of left artificial knee joint (principal); Z47.1 Aftercare following joint replacement surgery
CPT/HCPCS: 73560; 77073

== ENCOUNTER 2021-02-20 02:03 | Outpatient (CLI) | payer MEDICARE, BC, SELFPAY ==
[2021-02-20 12:39] LABS: Abs Immature Grans 0.02 10^3/uL (0.0-0.06); Absolute Basophil Count 0.04 10^3/uL (0.0-0.2); Absolute Eosinophil Count 0.28 10^3/uL (0.0-0.7); Absolute Monocyte Count 0.54 10^3/uL (0.1-0.8); Absolute Neutrophil Count 3.41 10^3/uL (1.2-6.7); Basophils % 0.6; HCT 30.4 % (36.0-46.0); HGB 10.1 g/dL (11.2-15.7); Immature Grans % 0.3; Lymphocytes % 38.6; MCHC 33.2 % (32.0-36.0); MCV 96.2 fL (80-95); MPV 9.1 fL (8.0-11.0); Monocytes % 7.7; Neutrophils % 48.8; Nucleated RBC 0 %; Platelet Count 266 10^3/uL (130-400); RBC 3.16 10^6/uL (3.93-5.22); RDW 12.5 % (11.7-14.6); RDW-SD 43.8 fL; WBC 6.99 10^3/uL (4.4-10.8)
[2021-02-20 13:21] LABS: Ferritin 513 ng/mL (8-252)
[2021-02-20 13:23] LABS: Iron 52 ug/dL (50-170)
== END 2021-02-20 02:04 | disposition home or self-care (01) ==
LOC: LOS 02:03
PROVIDERS: PCP Family Medicine; Visit Provider Family Medicine
DX: M25.569 Pain in unspecified knee (principal); D64.9 Anemia, unspecified
CPT/HCPCS: 36415; 85027; 82728; 83540; 85025

== ENCOUNTER 2021-02-27 02:45 | Outpatient (RCR) | payer MEDICARE, BC, SELFPAY ==
[2021-02-27] MEDS: Normal Saline Flush 10 ML SYR IVP (13:50)
[2021-02-27] MEDS: Heparin 500 UNITS/5 ML SYRINGE IV (13:50)
[2021-03-01 10:44] LABS: CA 125 4 U/mL (<30)
== END 2021-03-14 23:59 | disposition home or self-care (01) ==
LOC: INF 02:45
PROVIDERS: PCP Family Medicine; Visit Provider Obstetrics & Gynecology Gynecologic Oncology
DX: C57.02 Malignant neoplasm of left fallopian tube (principal); Z45.2 Encounter for adjustment and management of vascular access device
CPT/HCPCS: 36591; 86304

== ENCOUNTER → 2021-03-06 09:29 | Outpatient (BNVA) | payer MEDICARE, BC, SELFPAY | PROVIDERS: PCP Family Medicine; Visit Provider Student in an Organized Health Care Education/Training Program | DX: Z47.1 Aftercare following joint replacement surgery (principal); Z96.652 Presence of left artificial knee joint ==

== ENCOUNTER → 2021-04-17 08:57 | Outpatient (BNVA) | payer MEDICARE, SELFPAY | PROVIDERS: PCP Family Medicine; Referring Provider Family Medicine | DX: Z47.1 Aftercare following joint replacement surgery (principal); Z96.652 Presence of left artificial knee joint ==

== ENCOUNTER 2021-05-30 00:56 | Outpatient (RCR) | payer MEDICARE, SELFPAY ==
[2021-05-30] MEDS: Heparin 500 UNITS/5 ML SYRINGE IV (09:05)
[2021-05-30] MEDS: Normal Saline Flush 10 ML SYR IVP (09:05)
[2021-05-31 11:52] LABS: CA 125 6 U/mL (<30)
== END 2021-06-12 23:59 | disposition home or self-care (01) ==
LOC: INF 00:56
PROVIDERS: PCP Family Medicine; Visit Provider Obstetrics & Gynecology Gynecologic Oncology
DX: C57.9 Malignant neoplasm of female genital organ, unspecified (principal); Z45.2 Encounter for adjustment and management of vascular access device
CPT/HCPCS: 36591; 86304

== ENCOUNTER → 2021-11-09 12:41 | Outpatient (CLI) | payer MEDICARE, SELFPAY ==
--- NOTE | 2021-11-09 11:30 | DI.RAD_ITS ---
Exam(s) XR FOOT RT COMPLETE EXAM: XR FOOT RT COMPLETE CLINICAL HISTORY: FALL--W19.XXXA, RIGHT FOOT PAIN SWELLING. TECHNIQUE: 2D digital imaging was performed of the right foot. Three images were obtained. AP, obl ique and lateral views were obtained. COMPARISON: No exams were available for comparison FINDINGS: BONES: No acute fracture is present. No bony destructive lesion is seen. JOINTS: No dislocation present. Degenerative changes are seen in the foot particularly at the 1st TMT joint. SOFT TISSUE: Normal. IMPRESSION: No acute fracture or dislocation. DATA REPOSITORY: RADIATION DOSE DELIVERED:
== END ==
PROVIDERS: PCP Family Medicine; Visit Provider Family Medicine
DX: W19.XXXA Unspecified fall, initial encounter (principal); G89.11 Acute pain due to trauma; M79.671 Pain in right foot; M79.89 Other specified soft tissue disorders
CPT/HCPCS: 73630

== ENCOUNTER 2021-11-15 03:07 | Outpatient (CLI) | payer MEDICARE, SELFPAY ==
[2021-11-16 10:13] LABS: CA 125 5 U/mL (<30)
== END 2021-11-15 03:08 | disposition home or self-care (01) ==
LOC: LOS 03:07
PROVIDERS: PCP Family Medicine; Visit Provider Obstetrics & Gynecology Gynecologic Oncology
DX: C57.02 Malignant neoplasm of left fallopian tube (principal)
CPT/HCPCS: 36415; 86304

== ENCOUNTER 2022-01-29 09:52 | Outpatient (CLI) | payer MEDICARE, SELFPAY ==
--- NOTE | 2022-01-29 09:00 | DI.RAD_ITS ---
Exam(s) XR KNEE LT 2V AP,LAT EXAM: XR KNEE LT 2V AP,LAT CLINICAL HISTORY: s/p left TKA. TECHNIQUE: 2D digital imaging was performed. Two images were obtained. AP and lateral views were ob tained. COMPARISON: CR XR KNEE LT 3V AP,LAT,ASHLY from 09/29/2019 CR XR KNEE LT 1V from 02/06/2021 CR XR STANDING ALIGNMENT from 02/06/2021 FINDINGS: BONES: There are stable post operative changes present. No fracture or dislocation. JOINTS: The orthopedic hardware is in good position. SOFT TISSUE: Normal. IMPRESSION: Stable postoperative changes. DATA REPOSITORY: RADIATION DOSE DELIVERED:
== END 2022-01-29 09:53 | disposition home or self-care (01) ==
LOC: DIORS 09:52
PROVIDERS: PCP Family Medicine; Referring Provider Family Medicine; Visit Provider Physician Assistant
DX: Z96.652 Presence of left artificial knee joint (principal)
CPT/HCPCS: 99213; 73560

== ENCOUNTER 2022-06-07 02:56 | Outpatient (CLI) | payer MEDICARE, SELFPAY ==
[2022-06-08 10:34] LABS: CA 125 6 U/mL (<30)
== END 2022-06-07 02:57 | disposition home or self-care (01) ==
LOC: LBO 02:56
PROVIDERS: PCP Family Medicine; Visit Provider Obstetrics & Gynecology Gynecologic Oncology
DX: C57.02 Malignant neoplasm of left fallopian tube (principal)
CPT/HCPCS: 36415; 86304

== ENCOUNTER 2022-07-16 01:17 | Outpatient (CLI) | payer MEDICARE, SELFPAY | END 2022-07-16 01:37 | LOC: DI 01:17 | PROVIDERS: PCP Family Medicine; Visit Provider Family Medicine | DX: Z12.31 Encounter for screening mammogram for malignant neoplasm of breast (principal) | CPT/HCPCS: 77063; 77067 ==

== ENCOUNTER 2022-12-11 03:23 | Outpatient (CLI) | payer MEDICARE, SELFPAY ==
[2022-12-12 10:01] LABS: CA 125 7 U/mL (<30)
== END 2022-12-11 03:24 | disposition home or self-care (01) ==
LOC: LBO 03:23
PROVIDERS: PCP Family Medicine; Visit Provider Obstetrics & Gynecology Gynecologic Oncology
DX: C57.02 Malignant neoplasm of left fallopian tube (principal)
CPT/HCPCS: 36415; 86304

== ENCOUNTER → 2022-12-25 00:48 | Outpatient (CLI) | payer MEDICARE, SELFPAY ==
--- NOTE | 2022-12-25 08:15 | DI.DEXA_ITS ---
Exam(s) XR DEXA BONE DENSITY W/WO SHIRA EXAM: XR DEXA BONE DENSITY W/WO SHIRA CLINICAL HISTORY: SCREENING FOR OSTEOPOROSIS IN POSTMENOPAUSAL WOMAN,Z78.0 TECHNIQUE: Holokatena Horizon C densitometer analysis of left hip, lumbar spine and left forearm. Lat eral survey image of the thoracic and lumbar spine. COMPARISON: No exams were available for comparison FINDINGS: Lateral view of the thoracic and lumbar spine shows no evidence of compression fractures. Bone mineral density measurements of the lumbar spine correspond to a total T-score of -1.6, in the osteopenic range. This represents a 7.2 percent decrease compared with 2004. Bone mineral density measurements of the left hip correspond to a total T-score of -1.9. The femora l neck T-score is -1.8, in the osteopenic range. This represents a 16.1 percent decrease from 2004.. Theleft forearm bone mineral density measurements correspond to a T-score of the distal 3rd of -4.5, in the osteoporotic range. The forearm was not analyzed in 2004.. IMPRESSION: Osteopenia of the lumbar spine and left hip with decrease in bone mineral density compared with 2004. Osteoporosis of the forearm.
== END ==
PROVIDERS: PCP Family Medicine; Visit Provider Family Medicine
DX: Z78.0 Asymptomatic menopausal state (principal); Z13.820 Encounter for screening for osteoporosis; M81.0 Age-related osteoporosis without current pathological fracture
CPT/HCPCS: 77080

== ENCOUNTER 2023-01-31 09:08 | Outpatient (CLI) | payer MEDICARE, SELFPAY ==
--- NOTE | 2023-01-31 09:00 | DI.RAD_ITS ---
Exam(s) XR KNEE LT 2V AP,LAT EXAM: XR KNEE LT 2V AP,LAT CLINICAL HISTORY: annual f/u L TKA. TECHNIQUE: 2D digital imaging was performed. Two images were obtained. AP and lateral views were ob tained. COMPARISON: CR XR KNEE LT 2V AP,LAT from 01/29/2022 FINDINGS: BONES: There are stable post operative changes left total knee replacement present. No fracture or d islocation. JOINTS: The orthopedic hardware is in good position. No evidence of hardware loosening. SOFT TISSUE: Normal. IMPRESSION: Stable postoperative changes. DATA REPOSITORY: RADIATION DOSE DELIVERED:
== END 2023-01-31 09:09 | disposition home or self-care (01) ==
LOC: DIORS 09:08
PROVIDERS: PCP Family Medicine; Referring Provider Family Medicine; Visit Provider Student in an Organized Health Care Education/Training Program
DX: Z47.1 Aftercare following joint replacement surgery (principal); Z96.652 Presence of left artificial knee joint
CPT/HCPCS: 99213; 73560

== ENCOUNTER 2023-06-19 04:46 | Outpatient (CLI) | payer MEDICARE, SELFPAY ==
[2023-06-19 18:10] LABS: CA 125 7 U/mL (<30)
== END 2023-06-19 04:47 | disposition home or self-care (01) ==
LOC: LOS 04:46
PROVIDERS: PCP Family Medicine; Visit Provider Obstetrics & Gynecology Gynecologic Oncology
DX: C57.02 Malignant neoplasm of left fallopian tube (principal)
CPT/HCPCS: 36415; 86304

== ENCOUNTER 2023-08-15 11:36 | Outpatient (CLI) | payer MEDICARE, SELFPAY ==
[2023-08-15 12:26] LABS: HCT 38.8 % (36.0-46.0); HGB 13.8 g/dL (11.2-15.7); MCH 32.2 pg (27.0-33.0); MCHC 35.6 % (32.0-36.0); MCV 91 fL (80-95); MPV 9.6 fL (8.0-11.0); Platelet Count 224 10^3/uL (130-400); RBC 4.28 10^6/uL (3.93-5.22); RDW 12.1 % (11.7-14.6); WBC 6.82 10^3/uL (4.4-10.8)
[2023-08-15 12:51] LABS: Hemoglobin A1C 5.5 % (<5.7)
[2023-08-15 13:06] LABS: ALT 26 U/L (14-59); AST 23 U/L (15-37); Albumin 4.2 g/dL (3.4-5.0); Alkaline Phosphatase 100 U/L (46-116); Anion Gap 9.3 mmol/L (3-11); BUN 18 mg/dL (7-18); Bilirubin, Total 0.4 mg/dL (0.2-1.0); CO2 29.7 mmol/L (21.0-32.0); CREATININE 1.1 mg/dL (0.55-1.02); Calcium 10.1 mg/dL (8.5-10.1); Chloride 99 mmol/L (98-107); Estimated GFR 52.08 (mL/min/1.73m2); Glucose 94 mg/dL (74-106); Potassium 4.2 mmol/L (3.5-5.1); Sodium 138 mmol/L (136-145); TSH (W/Ref FT4) 6.04 uIU/mL (0.36-3.74); Total Protein 7.7 g/dL (6.4-8.2); Vitamin B12 362 pg/mL (193-986)
[2023-08-15 13:41] LABS: FREE T4 0.95 ng/dL (0.76-1.46)
== END 2023-08-15 11:37 | disposition home or self-care (01) ==
LOC: LOS 11:37
PROVIDERS: PCP Family Medicine; Visit Provider Family Medicine
DX: E11.9 Type 2 diabetes mellitus without complications (principal); R61 Generalized hyperhidrosis; E03.9 Hypothyroidism, unspecified; I10 Essential (primary) hypertension
CPT/HCPCS: 36415; 80053; 85027; 82607; 83036; 84439; 84443

== ENCOUNTER 2023-12-25 14:35 | Outpatient (CLI) | payer MEDICARE, SELFPAY ==
[2023-12-26 19:30] LABS: CA 125 10 U/mL (<30)
== END 2023-12-25 14:36 | disposition home or self-care (01) ==
PROVIDERS: PCP Family Medicine; Visit Provider Obstetrics & Gynecology Gynecologic Oncology
DX: C57.02 Malignant neoplasm of left fallopian tube (principal)
CPT/HCPCS: 36415; 86304

== ENCOUNTER 2024-06-17 03:34 | Outpatient (CLI) | payer MEDICARE, SELFPAY ==
[2024-06-17 18:40] LABS: CA 125 6 U/mL (<30)
== END 2024-06-17 03:35 | disposition home or self-care (01) ==
LOC: LBO 03:34
PROVIDERS: PCP Family Medicine; Visit Provider Obstetrics & Gynecology Gynecologic Oncology
DX: C57.02 Malignant neoplasm of left fallopian tube (principal)
CPT/HCPCS: 36415; 86304

== ENCOUNTER 2024-09-18 01:11 | Outpatient (CLI) | payer MEDICARE, SELFPAY ==
[2024-09-18 12:45] LABS: HCT 37.2 % (36.0-46.0); HGB 13.2 g/dL (11.2-15.7); MCH 32.4 pg (27.0-33.0); MCHC 35.5 % (32.0-36.0); MCV 91 fL (80-95); MPV 10.1 fL (8.0-11.0); Platelet Count 208 10^3/uL (130-400); RBC 4.08 10^6/uL (3.93-5.22); RDW-SD 40.3 fL; WBC 4.91 10^3/uL (4.4-10.8)
[2024-09-18 13:29] LABS: ALT 20 U/L (14-59); AST 21 U/L (15-37); Albumin 3.8 g/dL (3.4-5.0); Alkaline Phosphatase 90 U/L (46-116); BUN 14 mg/dL (7-18); Bilirubin, Total 0.5 mg/dL (0.2-1.0); Calcium 9.4 mg/dL (8.5-10.1); Chloride 101 mmol/L (98-107); Estimated GFR 58.02 (mL/min/1.73m2); Glucose 91 mg/dL (74-106); Sodium 138 mmol/L (136-145); TSH (W/Ref FT4) 5.34 uIU/mL (0.36-3.74); Total Protein 7.3 g/dL (6.4-8.2); Vitamin B12 347 pg/mL (193-986)
== END 2024-09-18 01:12 | disposition home or self-care (01) ==
LOC: LOS 01:12
PROVIDERS: PCP Family Medicine; Visit Provider Family Medicine
DX: D64.9 Anemia, unspecified (principal); E53.8 Deficiency of other specified B group vitamins; E03.9 Hypothyroidism, unspecified; I10 Essential (primary) hypertension
CPT/HCPCS: 36415; 80053; 85027; 82607; 84439; 84443

== ENCOUNTER 2024-12-18 09:13 | Outpatient (CLI) | payer MEDICARE, SELFPAY ==
[2024-12-19 01:57] LABS: CA 125 6 U/mL (<30)
== END 2024-12-18 09:14 | disposition home or self-care (01) ==
LOC: LOS 09:13
PROVIDERS: PCP Family Medicine; Visit Provider Obstetrics & Gynecology Gynecologic Oncology
DX: C57.02 Malignant neoplasm of left fallopian tube (principal)
CPT/HCPCS: 36415; 86304